=== PATIENT | male | born 1945 | race Caucasian/White ===

== ENCOUNTER 2017-05-10 04:03 | Emergency (ER) | payer OTHER ==
[~2017-05-10] VITALS: Ht 172.7 cm; Wt 78.3 kg
[~2017-05-10 04:03] MED LIST: ALBU0.08 INH; CIPR-255 PO; IPRA1AER2 INH; LEVAAER2 INH; LORA-741 PO; OXYC15TA89 PO; PRLSR20 PO; SERT-234 PO
[2017-05-10 04:08] VITALS: TEMP 36.6; Ht 172.7 cm; Wt 78.3 kg
--- NOTE | 2017-05-10 04:32 | EMERGENCY ROOM VISIT NOTE ---
History Report prepared by Minda: Nataly Mckeon Under the Supervision of: Dr. Karin Matthew M.D. First contact with patient: 04:13 Chief Complaint: UNABLE TO VOID Stated Complaint: UNABLE TO VOID History of Present Illness The patient is a 72 year old male who presents to the Emergency Room with complaints of difficulty urinating starting yesterday. He has been having a small amount of urinary output. The patient had scar tissue cut out from bladder on May 01. The patient's catheter was taken out 2 days ago. He is scheduled to have a bladder reconstruction in June. He also has a history of bowel reconstruction surgery. He had a small bowel movement about an hour and a half ago. He has a history of UTI. He is unsure about any fevers. The patient reports chronic back pain and denies any changes. Source of History: patient Onset: yesterday Position: other (global) Symptom Intensity: 04/27 Quality: other (difficulty urinating) Associated Symptoms: + back pain (chronic) Review of Systems See HPI for pertinent positives & negatives. A total of 10 systems reviewed and were otherwise negative. Past Medical & Surgical Medical Problems: (1) COPD (chronic obstructive pulmonary disease) (2) GERD (gastroesophageal reflux disease) (3) Hernia (4) Hyperlipidemia (5) Hypertension (6) Urethral stricture Family History Patient reports no known family medical history. Social History Smoking Status: Never Smoker Alcohol Use: none Drug Use: none Marital Status: Housing Status: lives with family Occupation Status: unemployed Current/Historical Medications Scheduled Fluticasone Propionate (Fluticasone Propionate), 2 SPRY NA BID Omeprazole (Prilosec), 20 MG PO QAM Sertraline (Zoloft), 100 MG PO DAILY Simvastatin (Simvastatin), 20 MG PO DAILY Scheduled PRN Albuterol Hfa (Ventolin Hfa), 2 PUFFS PO Q4 PRN for COUGH,SOB Albuterol Sulf (Proventil 0.083% 2.5MG/3ML), 2.5 MG INH QID PRN for Wheezing Ipratropium-Albuterol (Combivent Respimat), 1 PUFFS INH QID PRN for Wheezing Oxycodone Hcl (Oxycontin), 15 MG PO Q6 PRN for Pain Allergies Coded Allergies: Doxycycline (Verified Allergy, Unknown, GI UPSET, 05/10/17) Sulfamethoxazole w/Trimethoprim (Verified Allergy, Unknown, RASH, 05/10/17) Physical Exam Vital Signs Date Time Temp Pulse Resp B/P (MAP) Pulse Ox O2 Delivery O2 Flow Rate FiO2 05/10/17 07:11 83 18 182/78 97 05/10/17 06:30 80 18 149/86 97 05/10/17 04:08 36.6 86 18 176/77 96 Room Air Physical Exam Vital signs reviewed. General: Elderly, well-appearing, in no significant distress. HEENT: No scleral icterus, PERRLA, neck supple. Atraumatic. Cardiovascular: Regular rate and rhythm, no extra sounds. Pulmonary: Clear to auscultation bilaterally, normal work of breathing. Abdomen: Soft, nontender, nondistended, positive bowel sounds. Linear suprapubic scar to the abdomen. Musculoskeletal: Atraumatic, no peripheral edema. Neurologic: Patient awake alert and oriented x 3, full strength in all 4 extremities. Cranial nerves 2 through 12 grossly intact. Skin: Warm, dry, no rash Medical Decision & Procedures Laboratory Results 05/10/17 04:45 Red Blood Count 4.69, Mean Corpuscular Volume 93.2, Mean Corpuscular Hemoglobin 32.0, Mean Corpuscular Hemoglobin Concent 34.3, Mean Platelet Volume 10.6, Neutrophils (%) (Auto) 56.1, Lymphocytes (%) (Auto) 23.1, Monocytes (%) (Auto) 12.8, Eosinophils (%) (Auto) 7.3, Basophils (%) (Auto) 0.5, Neutrophils # (Auto ) 3.08, Lymphocytes # (Auto) 1.27, Monocytes # (Auto) 0.70, Eosinophils # (Auto ) 0.40, Basophils # (Auto) 0.03 05/10/17 04:45 Test 05/10/17 04:45 05/10/17 06:35 White Blood Count 5.49 K/uL (4.8-10.8) Red Blood Count 4.69 M/uL (4.7-6.1) Hemoglobin 15.0 g/dL (14.0-18.0) Hematocrit 43.7 % (42-52) Mean Corpuscular Volume 93.2 fL (80-100) Mean Corpuscular Hemoglobin 32.0 pg (25-34) Mean Corpuscular Hemoglobin Concent 34.3 g/dl (32-36) Platelet Count 236 K/uL (130-400) Mean Platelet Volume 10.6 fL (7.4-10.4) Neutrophils (%) (Auto) 56.1 % Lymphocytes (%) (Auto) 23.1 % Monocytes (%) (Auto) 12.8 % Eosinophils (%) (Auto) 7.3 % Basophils (%) (Auto) 0.5 % Neutrophils # (Auto) 3.08 K/uL (1.4-6.5) Lymphocytes # (Auto) 1.27 K/uL (1.2-3.4) Monocytes # (Auto) 0.70 K/uL (0.11-0.59) Eosinophils # (Auto) 0.40 K/uL (0-0.5) Basophils # (Auto) 0.03 K/uL (0-0.2) RDW Standard Deviation 40.4 fL (36.4-46.3) RDW Coefficient of Variation 12.0 % (11.5-14.5) Immature Granulocyte % (Auto) 0.2 % Immature Granulocyte # (Auto) 0.01 K/uL (0.00-0.02) Anion Gap 5.0 mmol/L (3-11) Est Creatinine Clear Calc Drug Dose 67.3 ml/min Estimated GFR () 91.2 Estimated GFR (Non- 78.7 BUN/Creatinine Ratio 9.4 (10-20) Calcium Level 9.2 mg/dl (8.5-10.1) Total Bilirubin 0.3 mg/dl (0.2-1) Direct Bilirubin 0.1 mg/dl (0-0.2) Aspartate Amino Transf (AST/SGOT) 12 U/L (15-37) Alanine Aminotransferase (ALT/SGPT) 17 U/L (12-78) Alkaline Phosphatase 78 U/L (45-117) Total Protein 6.2 gm/dl (6.4-8.2) Albumin 3.3 gm/dl (3.4-5.0) Urine Color YELLOW Urine Appearance CLEAR (CLEAR) Urine pH 6.5 (4.5-7.5) Urine Specific [place] 1.019 (1.000-1.030) Urine Protein TRACE (NEG) Urine Glucose (UA) NEG (NEG) Urine Ketones NEG (NEG) Urine Occult Blood 1+ (NEG) Urine Nitrite NEG (NEG) Urine Bilirubin NEG (NEG) Urine Urobilinogen NEG (NEG) Urine Leukocyte Esterase LARGE (NEG) Urine WBC (Auto) >30 /hpf (0-5) Urine RBC (Auto) 5-10 /hpf (0-4) Urine Hyaline Casts (Auto) 10-30 /lpf (0-5) Urine Epithelial Cells (Auto) 0-5 /lpf (0-5) Urine Bacteria (Auto) 2+ (NEG) Laboratory results per my review. Medications Administered Medications (Trade) Dose Ordered Sig/Madisyn Route Start Time Stop Time Status Last Admin Dose Admin Lidocaine HCl (Xylocaine Jelly 2%) 30 ml STK-MED ONCE EXT 05/10/17 06:03 05/10/17 06:04 DC 05/10/17 06:03 30 ML Ciprofloxacin (Cipro Tab) 500 mg NOW STAT PO 05/10/17 06:46 05/10/17 06:48 DC 05/10/17 07:00 500 MG ED Course 0413: Past medical records reviewed. The patient was evaluated in room A03. A complete history and physical examination was performed. 0420: The patient 93 cc of urine on bladder scan. 0643: I discussed the patient's case with Dr. Jacob, urologist with [facility]. 0646: Cipro Tab 500 mg PO 0655: Upon reevaluation, the patient appeared to have improvement of his symptoms. I discussed findings with him. He verbalized agreement of the treatment plan. He was discharged home. Medical Decision Medication Reconciliation: I attest that I have personally reviewed the patient' s current medication list. Blood Pressure Screening: Patient was found to have a slightly elevated blood pressure due to circumstances. I do not believe that the patient requires hypertension monitoring. Differential diagnosis includes but is not limited to urinary tract infection, bladder spasm, urethral scar tissue, kidney stone. This patient was evaluated and appeared to be in no significant distress. IV access was obtained and laboratory work was drawn. Laboratory work reveals no significant abnormalities. The patient does appear to have a UTI. Attempts were made to pass a Lorenzo catheter and were largely unsuccessful. After the last attempts, the patient was able to urinate on his own. Case was discussed with Dr. Jacob of urology was agreed to evaluate the patient at 8 AM in her office. Patient was given Cipro 500 mg orally per her request. Patient was informed of the plan and has agreed to go directly to her office for evaluation. He will return to the ER for worsening of symptoms or any medical concerns. Consults Time Called: [phone] Consulting Physician: Dr. Jacob, urologist with [facility] Returned Call: [phone] I discussed the patient's case with Dr. Jacob, urologist with [facility]. Impression Primary Impression: Urethral stricture Scribe Attestation The scribe's documentation has been prepared under my direction and personally reviewed by me in its entirety. I confirm that the note above accurately reflects all work, treatment, procedures, and medical decision making performed by me. Departure Information Dispostion Home / Self-Care Referrals Azucena Arreola M.D. (PCP) Linnette Jacob MD Forms HOME CARE DOCUMENTATION FORM, IMPORTANT VISIT INFORMATION, WORK / SCHOOL INSTRUCTIONS Patient Instructions My [facility] Additional Instructions Diagnosis: Urethral stricture, dysuria Please go directly to Dr. Fatima's office at 8 AM. Return to the emergency department for worsening of symptoms or any medical concerns.
[2017-05-10 04:58] LABS: BASO % 0.5 %; BASO ABS # 0.03 K/uL (0-0.2); COMPLETE YES; EOS % 7.3 %; HEMATOCRIT 43.7 % (42-52); IG% 0.2 %; LYMPH % 23.1 %; LYMPH ABS # 1.27 K/uL (1.2-3.4); MEAN CELL VOLUME 93.2 fL (80-100); MEAN CORPUSCULAR HGB CONC 34.3 g/dl (32-36); MEAN PLATELET VOLUME 10.6 fL (7.4-10.4); MONO % 12.8 %; NEUT % 56.1 %; PLATELET COUNT 236 K/uL (130-400); RED BLOOD COUNT 4.69 M/uL (4.7-6.1); WHITE BLOOD COUNT 5.49 K/uL (4.8-10.8)
[2017-05-10 05:19] LABS: BUN/CREATININE RATIO 9.4 (10-20); CREATININE 0.96 mg/dl (0.60-1.40); POTASSIUM 3.8 mmol/L (3.5-5.1)
[2017-05-10 05:24] LABS: CALCIUM 9.2 mg/dl (8.5-10.1)
[2017-05-10] MEDS ORDERED: LIDOCAINE HCL 2% JELLY 30 ML TUBE EXT ONE (06:03)
[2017-05-10] MEDS ORDERED: ALBINS/ INH (06:38)
[2017-05-10] MEDS ORDERED: VNTHFA/IN PO (06:39)
[2017-05-10] MEDS ORDERED: FLNIN/ (06:39)
[2017-05-10] MEDS ORDERED: SIMV-151 PO (06:39)
[2017-05-10] MEDS ORDERED: CIPROFLOXACIN 500 MG TAB PO STA (06:46)
[2017-05-10 07:11] VITALS: BP 182/78; PULSE 83; O2SAT 97
[2017-05-10 07:18] LABS: MANUAL MICROSCOPIC REQUIRED? NO; REVIEW REQ? NO; URINE APPEARANCE CLEAR (CLEAR); URINE BILIRUBIN NEG (NEG); URINE COLOR YELLOW; URINE EPITHELIAL CELL AUTO 0-5 /lpf (0-5); URINE NITRITE NEG (NEG); URINE PH 6.5 (4.5-7.5); URINE SPECIFIC GRAVITY 1.019 (1.000-1.030); UROBILINOGEN NEG (NEG); ZZUR CULT IF INDIC CLEAN CATCH YES
--- NOTE | 2017-05-13 12:11 | Pharmacy Progress Note ---
ED Pharmacist Culture FollowUp Date of Service: May 13, 2017. Patient seen in ER w/ c/o being unable to void. He recently had scar tissue removed from bladder on 05-01. He does have h/o UTI. UA performed: + LE (large), > 30 WBC, +2 bacteria, 0-5 epis He was dx with urethral stricture Dr Jacob from urology requested 500mg Cipro PO x 1 in ED (given) and patient was to f/u with urology on 05/10. Urine cx performed that day is growing >100,000 CFU/mL enterobacter agglomerans. He was not sent home w/ Rx for abx. I contacted Dr Fatima's office and explained that urine cx is positive. Office requested I fax results over ([phone]), which I did do, so that urology can f/u with patient. No further action required from ED standpoint.
== END 2017-05-10 07:12 | disposition home or self-care (01) ==
LOC: C.EDB 04:04 → C.EDA 07:12
DX: N35.9 Urethral stricture, unspecified (principal); M54.9 Dorsalgia, unspecified; G89.29 Other chronic pain; Z87.440 Personal history of urinary (tract) infections; J44.9 Chronic obstructive pulmonary disease, unspecified; K21.9 Gastro-esophageal reflux disease without esophagitis; E78.5 Hyperlipidemia, unspecified; I10 Essential (primary) hypertension; Z79.899 Other long term (current) drug therapy

== ENCOUNTER → 2017-11-07 | Outpatient (CLI) | payer OTHER ==
[~2017-11-07] MED LIST changes: +ALBINS/ INH; -ALBU0.08 INH; -CIPR-255 PO; +FLNIN/; -LEVAAER2 INH; -LORA-741 PO; +SIMV-151 PO; +VNTHFA/IN PO
== END | disposition home or self-care (01) ==
LOC: C.PATHSPEC 17:22
PROVIDERS: ATTEND Surgery
DX: L72.3 Sebaceous cyst (principal)

== ENCOUNTER → 2017-11-07 | Outpatient (CLI) | payer OTHER | END | disposition home or self-care (01) | LOC: C.LABSPEC 16:52 | PROVIDERS: ATTEND Surgery | DX: L72.3 Sebaceous cyst (principal) ==

== ENCOUNTER → 2018-03-05 | Outpatient (CLI) | payer OTHER | END | disposition home or self-care (01) | LOC: C.LABSPEC 10:45 | PROVIDERS: ATTEND Family Medicine | DX: R39.9 Unspecified symptoms and signs involving the genitourinary system (principal) ==

== ENCOUNTER 2022-11-05 13:52 | Inpatient (IN) ==
[2022-11-05] MEDS ORDERED: ACETAMINOPHEN 500 MG TAB PO STA (13:55)
[2022-11-05] MEDS ORDERED: SODIUM CHLORIDE 0.9% 1000ML 1,000 ML IV SCH (14:00)
--- NOTE | 2022-11-05 14:19 | XRay Report ---
SINGLE VIEW CHEST CLINICAL HISTORY: Dyspnea FINDINGS: An AP, portable, upright chest radiograph is compared to study dated 10/14/2016. The heart is enlarged noting mild atherosclerotic calcification of the thoracic aorta. The pulmonary vasculatur e is noncongested. Emphysema and chronic interstitial thickening similar to previous. Scarring/atelec tasis is seen at the lung bases. No airspace consolidation or large pleural effusion is identified. N o pneumothorax is seen. The skeletal structures are osteopenic. There are healed left-sided rib fract ures. IMPRESSION: Cardiomegaly and emphysema with no acute cardiopulmonary abnormality identified ACT 112: Negative or not required by law. Electronically signed by: Nikos Morataya M.D. 11/05/2022 2:18 PM
[2022-11-05] MEDS ORDERED: ALBUT/IPRATROP 3MG/0.5MG NEB 3 ML VIAL NEB STA (14:22)
[2022-11-05] MEDS ORDERED: methylPREDNISolone 125 MG/2 ML VIAL IV STA (14:22)
--- NOTE | 2022-11-05 14:22 | Emergency Department Note ---
Impression & Plan Flu-like symptoms, Hypoxia ED Provider Note INFORMANT: Patient and EMS ED PROVIDER(S): Jason Kang MD CHIEF COMPLAINT: Flulike symptoms PLAN: Disposition: Admitted Condition: Good Outpatient prescription management: none Referral: None MEDICAL DECISION MAKING: Patient presented because of flulike symptoms. He was febrile but that was treated with Tylenol at the urgent care center. He did respond well to nasal cannula oxygen. His CBC and chemistry panel did not reveal any gross abnormalities. His ECG and monitoring here revealed a sinus rhythm with PACs. EMS thought that they noted the patient to have an irregular heartbeat and were concerned about A. fib. No clear evidence of that here. The patient had chronic appearing changes on his chest x-ray without evidence of clear pneumonia. Patient had received a DuoNeb and Solu-Medrol. On reassessment he was feeling somewhat better with this. He still generally weak. His bio fire testing did reveal the presence of influenza A. Tamiflu was ordered. Given the hypoxia and generalized weakness I discussed further management in the hospital with the patient. He was in agreement. Consultation was made with [facility]. Patient was evaluated in the ER for further management. Triage Nursing notes reviewed and agree them. Vital Signs: reviewed and remarkable for hypoxia and fever Differential diagnosis: COVID-19, influenza, RSV, reactive airway disease, pneumonia, pneumothorax, COPD, CHF, infections, cardiac ischemia, pulmonary embolism, musculoskeletal, gastrointestinal, as well as other pathologies. Diagnostics interpreted by me: ECG: Twelve-lead ECG reveals a sinus rhythm with PACs at a 93 bpm. Left axis deviation. Septal Q wave. No ST elevation or depression. Cardiac Monitoring: Cardiac monitoring ordered by me: The patient was placed on continuous cardiac monitoring and observed. It revealed a normal sinus rhythm at 88 beats per minute without evidence of dysrhythmia. Imaging studies: Chest x-ray as noted below HPI: The patient is a 77year old male who presents to the Emergency Room with complaints of flulike symptoms. He noted some difficulty breathing over about the last 6 days but then over the last 3 days has had increased cough, weakness, fevers, and shortness of breath. Patient does have a history of COPD. He did go to the urgent care center in [place] and was noted to have a low O2 saturation. Patient states he has had occasional use of oxygen in the past but does not use it on a regular basis. His O2 saturation for EMS was 88%. Patient appeared to be in a new onset A. fib per EMS. No significant tachycardia. He did have a temperature of 102 at the urgent care and was given 650 mg of Tylenol. Patient does note that family members are sick as well with flulike symptoms. He notes the last few days have been extremely difficult getting arou nd due to the weakness and the symptoms. Pt denies LOC, headache,diaphoresis, visual changes, neck pain, chest pain,nausea, vomiting, abdominal pain, back pain, melena, hematochezia, urinary symptoms, numbness, lymphadenopathy, rash, or other complaints. ROS: See above HPI for pertinent positives & negatives. A total of 10 systems reviewed and were otherwise negative. PAST MEDICAL HISTORY:See Below , COPD PAST SURGICAL HISTORY:See Below, FAMILY HISTORY:See Below SOCIAL HISTORY:See Below, former smoker HOME MEDICATIONS:See Below ALLERGIES:See Below VITALS:See Below PHYSICAL EXAMINATION: GENERAL: Awake, alert, mildly ill appearing, no distress HEAD: Normocephalic, atraumatic. No edema. EYES: Normal conjunctiva. Sclera non-icteric. NOSE: Mild congestion. OROPHARYNX: Lips, tongue, and mucosa unremarkable. No erythema or exudate. NECK: Inspection normal. Non-tender. Supple. No nuchal rigidity. FROM. No adenopathy. Negative jolt accentuation test. RESPIRATORY: Scattered wheezes and left-sided rhonchi. Normal respiratory effort. CARDIAC: Borderline tachycardic rate. Normal rhythm. No murmurs. No rubs. GI: Soft, non distended. No tenderness to palpation. NEURO: Normal sensorium. Normal speech. SKIN: No rash or jaundice noted. Jason Kang MD Past Med/Surg History Medical History (Updated 11/05/22 @ 14:22 by Jason Kang MD) COPD (chronic obstructive pulmonary disease) GERD (gastroesophageal reflux disease) Hernia Hyperlipidemia Hypertension Kidney cysts Surgical History (Updated 11/16/20 @ 13:02 by Isamar Talley RN) S/P urological surgery Family History Denies family history of Colon cancer Ovarian cancer Prostate cancer Myocardial infarction Breast cancer Social History Smoking Status: Unknown if ever smoked Age Quit Using Tobacco: 62; Second Hand Exposure: No; Hx Alcohol Use: No Hx Substance Use: No Visual Impairment: No Limitations Hearing Ability: Hard of Hearing marital status: Current Living Situation: Spouse current occupational status: retired Feels Safe at Home: Yes Dental Care, Regularly: No Physical Activity Frequency: Does not Exercise Allergies Allergies Allergy/AdvReac Type Severity Reaction Status Date / Time Bactrim Allergy Unknown RASH Verified 05/10/17 06:37 doxycycline Allergy Unknown GI UPSET Verified 08/20/19 13:33 sulfamethoxazole Allergy Unknown RASH Verified 08/20/19 13:33 trimethoprim Allergy Unknown RASH Verified 08/20/19 13:33 Home Meds Previous Rx's Medication Instructions Recorded oxycodone 15 mg tablet 15 mg PO DAILY PRN pain #30 tabs 08/20/19 fluticasone propionate 50 2 sprays intranasal DAILY #16 grams 05/13/20 mcg/actuation nasal spray,suspension (Allergy Relief (fluticasone)) albuterol sulfate 2.5 mg/3 mL 2.5 mg (3 mL) inhalation Q6H PRN 06/08/20 (0.083 %) solution for nebulization shortness of breath or wheezing #360 mL Results & Data (ED) Vital Signs Vital Signs - 24 hr 11/05/22 14:02 11/05/22 14:50 11/05/22 14:25 Temperature 37.7 C H Temperature Source Oral Pulse Rate 89 97 H Pulse Rhythm Regular Pulse Rhythm [Right Brachial] Pulse Strength [Right Brachial] Respiratory Rate 20 26 H Respiratory Effort / Characteristics Non-Labored Respiratory Depth Normal Respiratory Pattern Regular Blood Pressure 116/66 Blood Pressure [Right Arm] Blood Pressure Mean 82 Blood Pressure Mean [Right Arm] Blood Pressure Position [Right Arm] Pulse Oximetry 96 2 L Oxygen Delivery Method Nasal Cannula Nasal Cannula Oxygen Flow Rate 2 Sepsis Recent Fever Within 48 Hours Yes Sepsis New/Unexplained Change in Mental Status No Sepsis Action Taken by Nursing No Action Required 11/05/22 14:30 11/05/22 15:00 11/05/22 15:00 Temperature Temperature Source Pulse Rate 97 H 88 Pulse Rhythm Pulse Rhythm [Right Brachial] Pulse Strength [Right Brachial] Respiratory Rate 21 20 Respiratory Effort / Characteristics Respiratory Depth Respiratory Pattern Blood Pressure 143/75 H Blood Pressure [Right Arm] Blood Pressure Mean 97 Blood Pressure Mean [Right Arm] Blood Pressure Position [Right Arm] Pulse Oximetry Oxygen Delivery Method Oxygen Flow Rate Sepsis Recent Fever Within 48 Hours Sepsis New/Unexplained Change in Mental Status Sepsis Action Taken by Nursing 11/05/22 15:30 Temperature Temperature Source Pulse Rate Pulse Rhythm Pulse Rhythm [Right Brachial] Regular Pulse Strength [Right Brachial] Normal Respiratory Rate 18 Respiratory Effort / Characteristics Non-Labored Spontaneous Respiratory Depth Normal Respiratory Pattern Regular Blood Pressure Blood Pressure [Right Arm] 130/73 Blood Pressure Mean Blood Pressure Mean [Right Arm] 92 Blood Pressure Position [Right Arm] Lying Pulse Oximetry 93 Oxygen Delivery Method Nasal Cannula Oxygen Flow Rate 2 Sepsis Recent Fever Within 48 Hours Sepsis New/Unexplained Change in Mental Status Sepsis Action Taken by Nursing Laboratory Data Result diagrams: 11/05/22 14:13 11/05/22 14:13 Lab Results 11/05/22 11/05/22 11/05/22 Range/Units 14:13 14:13 14:13 WBC 7.02 (4.8-10.8) K/ul RBC 4.85 (4.63-6.08) M/uL Hgb 15.2 (14.0-18.0) g/dl Hct 45.0 (40.1-51.0) % MCV 92.8 (80.0-100.0) fL MCH 31.3 (25.0-34.0) pg MCHC 33.8 (32.0-36.0) g/dL RDW Std Deviation 39.9 (36.4-46.3) fL RDW Coeff of [place]ner 11.8 (11.5-14.5) % Plt Count 190 (130-400) K/uL MPV 11.6 (9.4-12.4) fL Immature Gran % (Auto) 0.7 % Neut % (Auto) 78.3 % Lymph % (Auto) 7.5 % [place] % (Auto) 13.2 % Eos % (Auto) 0.0 % Baso % (Auto) 0.3 % Neut # (Auto) 5.49 (1.4-6.5) K/uL Lymph # (Auto) 0.53 L (1.2-3.4) K/uL [place] # (Auto) 0.93 H (0.24-0.82) K/uL Eos # (Auto) 0.00 (0-0.50) K/uL Baso # (Auto) 0.02 (0-0.2) K/uL Immature Gran # (Auto) 0.05 H (0.00-0.02) K/uL Sodium 135 L (136-145) mmol/L Potassium 3.9 (3.5-5.1) mmol/L Chloride 101 (98-107) mmol/L Carbon Dioxide 25 (21-32) mmol/L Anion Gap 9 (3-11) BUN 13 (6-23) mg/dl Creatinine 0.90 (0.6-1.4) mg/dl Est Cr Clr Drug Dosing 64.3 ml/min Est GFR ( Amer) 95.1 ml/min Est GFR (Non-Af Amer) 82.1 ml/min BUN/Creatinine Ratio 14.4 (10-20) Glucose 99 (70-99(Fasting)) mg/dl Calcium 8.4 L (8.5-10.1) mg/dl Total Bilirubin 0.5 (0.2-1.0) mg/dl AST 18 (13-39) U/L ALT 11 (7-52) U/L Alkaline Phosphatase 71 (34-104) U/L Troponin I High Sens 14.9 (0-20) pg/ml B-Natriuretic Peptide 55 (0-100) pg/ml Total Protein 7.0 (6.0-8.3) gm/dl Albumin 3.9 (3.4-5.0) gm/dl Globulin 3.1 (2.5-4.0) gm/dl Albumin/Globulin Ratio 1.3 (0.9-2) Urine Color Urine Appearance (Clear) Urine pH (4.5-7.5) Ur Specific [place] (1.000-1.030) Urine Protein (Negative) Urine Glucose (UA) (Negative) Urine Ketones (Negative) Urine Blood (Negative) Urine Nitrite (Negative) Urine Bilirubin (Negative) Urine Urobilinogen (Negative) Ur Leukocyte Esterase (Negative) Urine WBC (Auto) (0-5) /hpf Urine RBC (Auto) (0-4) /hpf U Hyaline Cast (Auto) (0-5) /lpf U Epithel Cells (Auto) (0-5) /lpf Urine Bacteria (Auto) (Negative) Adenovirus (PCR) (NotDetected) B. pertussis DNA (PCR) (NotDetected) B.parapertussis DNA PCR (NotDetected) C. pneumoniae DNA (PCR) (NotDetected) Coronavirus OC43 (PCR) (NotDetected) Coronavirus HKU1 (PCR) (NotDetected) Coronavirus 229E (PCR) (NotDetected) SARS-CoV-2 (PCR) (NotDetected) Coronavirus NL63 (PCR) (NotDetected) Human Metapneumovir PCR (NotDetected) Influenza A (H3) PCR (NotDetected) Influenza Type B (PCR) (NotDetected) M. pneumoniae (PCR) (NotDetected) Parainfluenza 1 (PCR) (NotDetected) Parainfluenza 2 (PCR) (NotDetected) Parainfluenza 3 (PCR) (NotDetected) Parainfluenza 4 (PCR) (NotDetected) RSV (PCR) (NotDetected) Entero/Rhino (PCR) (NotDetected) 11/05/22 11/05/22 Range/Units 14:13 15:50 WBC (4.8-10.8) K/ul RBC (4.63-6.08) M/uL Hgb (14.0-18.0) g/dl Hct (40.1-51.0) % MCV (80.0-100.0) fL MCH (25.0-34.0) pg MCHC (32.0-36.0) g/dL RDW Std Deviation (36.4-46.3) fL RDW Coeff of Conner (11.5-14.5) % Plt Count (130-400) K/uL MPV (9.4-12.4) fL Immature Gran % (Auto) % Neut % (Auto) % Lymph % (Auto) % [place] % (Auto) % Eos % (Auto) % Baso % (Auto) % Neut # (Auto) (1.4-6.5) K/uL Lymph # (Auto) (1.2-3.4) K/uL [place] # (Auto) (0.24-0.82) K/uL Eos # (Auto) (0-0.50) K/uL Baso # (Auto) (0-0.2) K/uL Immature Gran # (Auto) (0.00-0.02) K/uL Sodium (136-145) mmol/L Potassium (3.5-5.1) mmol/L Chloride (98-107) mmol/L Carbon Dioxide (21-32) mmol/L Anion Gap (3-11) BUN (6-23) mg/dl Creatinine (0.6-1.4) mg/dl Est Cr Clr Drug Dosing ml/min Est GFR ( Amer) ml/min Est GFR (Non-Af Amer) ml/min BUN/Creatinine Ratio (10-20) Glucose (70-99(Fasting)) mg/dl Calcium (8.5-10.1) mg/dl Total Bilirubin (0.2-1.0) mg/dl AST (13-39) U/L ALT (7-52) U/L Alkaline Phosphatase (34-104) U/L Troponin I High Sens (0-20) pg/ml B-Natriuretic Peptide (0-100) pg/ml Total Protein (6.0-8.3) gm/dl Albumin (3.4-5.0) gm/dl Globulin (2.5-4.0) gm/dl Albumin/Globulin Ratio (0.9-2) Urine Color Yellow Urine Appearance Clear (Clear) Urine pH 5.5 (4.5-7.5) Ur Specific [place] 1.017 (1.000-1.030) Urine Protein Trace H (Negative) Urine Glucose (UA) Negative (Negative) Urine Ketones 1+ H (Negative) Urine Blood Negative (Negative) Urine Nitrite Negative (Negative) Urine Bilirubin Negative (Negative) Urine Urobilinogen Negative (Negative) Ur Leukocyte Esterase Negative (Negative) Urine WBC (Auto) 1-5 (0-5) /hpf Urine RBC (Auto) 0-4 (0-4) /hpf U Hyaline Cast (Auto) 1-5 (0-5) /lpf U Epithel Cells (Auto) 10-20 H (0-5) /lpf Urine Bacteria (Auto) Negative (Negative) Adenovirus (PCR) Not Detected (NotDetected) B. pertussis DNA (PCR) Not Detected (NotDetected) B.parapertussis DNA PCR Not Detected (NotDetected) C. pneumoniae DNA (PCR) Not Detected (NotDetected) Coronavirus OC43 (PCR) Not Detected (NotDetected) Coronavirus HKU1 (PCR) Not Detected (NotDetected) Coronavirus 229E (PCR) Not Detected (NotDetected) SARS-CoV-2 (PCR) Not Detected (NotDetected) Coronavirus NL63 (PCR) Not Detected (NotDetected) Human Metapneumovir PCR Not Detected (NotDetected) Influenza A (H3) PCR DETECTED A* (NotDetected) Influenza Type B (PCR) Not Detected (NotDetected) M. pneumoniae (PCR) Not Detected (NotDetected) Parainfluenza 1 (PCR) Not Detected (NotDetected) Parainfluenza 2 (PCR) Not Detected (NotDetected) Parainfluenza 3 (PCR) Not Detected (NotDetected) Parainfluenza 4 (PCR) Not Detected (NotDetected) RSV (PCR) Not Detected (NotDetected) Entero/Rhino (PCR) Not Detected (NotDetected) Administered Medications Sodium Chloride (Nss 1000ml) 1,000 mls @ 125 mls/hr IV .Q8H [facility] Stop: 12/05/22 13:59 Last Admin: 11/05/22 14:35 Dose: 125 mls/hr Documented By: MAMIE Discontinued Medications Acetaminophen (Acetaminophen 500 Mg Tab) 1,000 mg PO NOW STA Stop: 11/05/22 13:56 Last Admin: 11/05/22 14:47 Dose: Not Given Documented By: BELÉN Albuterol (Albut/Ipratrop 3mg/0.5mg Neb 3 Ml Vial) 3 ml NEB NOW STA; Protocol Stop: 11/05/22 14:23 Last Admin: 11/05/22 14:36 Dose: 3 ml Documented By: MAMIE Methylprednisolone (Methylprednisolone 125 Mg/2 Ml Vial) 125 mg IV NOW STA Stop: 11/05/22 14:23 Last Admin: 11/05/22 14:35 Dose: 125 mg Documented By: MAMIE Imaging Data Radiologist's Impression: Chest X-Ray 11/05/22 13:55 SINGLE VIEW CHEST CLINICAL HISTORY: Dyspnea FINDINGS: An AP, portable, upright chest radiograph is compared to study dated 10/14/2016. The heart is enlarged noting mild atherosclerotic calcification of the thoracic aorta. The pulmonary vasculature is noncongested. Emphysema and chronic interstitial thickening similar to previous. Scarring/atelectasis is seen at the lung bases. No airspace consolidation or large pleural effusion is identified. No pneumothorax is seen. The skeletal structures are osteopenic. There are healed left-sided rib fractures. IMPRESSION: Cardiomegaly and emphysema with no acute cardiopulmonary abnormality identified ACT 112: Negative or not required by law. Electronically signed by: Nikos Morataya M.D. 11/05/2022 2:18 PM Discharge Plan Visit Data Chief Complaint: Flu Like Symptoms Stated Complaint: FLU SX ED Provider: Jason Kang Discharge Problem: Flu-like symptoms, Hypoxia Forms Stand Alone Forms: [facility] Prescriptions Prescriptions: No Action fluticasone propionate [Allergy Relief (fluticasone)] 50 mcg/actuation spray,suspension 2 sprays INTNAS DAILY Qty: 16 5RF Rx Instructions: administer into each nostril albuterol sulfate 2.5 mg /3 mL (0.083 %) solution for nebulization 2.5 mg INH Q6H PRN (Reason: shortness of breath or wheezing) Qty: 360 1RF oxycodone 15 mg tablet 15 mg PO DAILY PRN (Reason: pain) Qty: 30 0RF Referrals Referrals: PCP,NO [Primary Care Provider] -
[2022-11-05 15:02] LABS: Basophils # (auto) 0.02 K/uL (0-0.2); Basophils % (auto) 0.3 %; Hemoglobin 15.2 g/dl (14.0-18.0); Immature Granulocytes # (auto) 0.05 K/uL (0.00-0.02); Immature Granulocytes % (auto) 0.7 %; Lymphocytes # (auto) 0.53 K/uL (1.2-3.4); Lymphocytes % (auto) 7.5 %; Mean Corpuscular Hemoglobin 31.3 pg (25.0-34.0); Mean Corpuscular Hgb Conc 33.8 g/dL (32.0-36.0); Mean Corpuscular Volume 92.8 fL (80.0-100.0); Mean Platelet Volume 11.6 fL (9.4-12.4); Monocytes # (auto) 0.93 K/uL (0.24-0.82); Monocytes % (auto) 13.2 %; Neutrophils # (auto) 5.49 K/uL (1.4-6.5); Neutrophils % (auto) 78.3 %; Platelet Count 190 K/uL (130-400); RDW Coefficient of Variation 11.8 % (11.5-14.5); RDW Standard Deviation 39.9 fL (36.4-46.3); Red Blood Count 4.85 M/uL (4.63-6.08); White Blood Count 7.02 K/ul (4.8-10.8)
[2022-11-05 15:29] LABS: Troponin I High Sensitivity 14.9 pg/ml (0-20)
[2022-11-05 15:31] LABS: Albumin Globulin Ratio 1.3 (0.9-2); Albumin Level 3.9 gm/dl (3.4-5.0); BUN Creatinine Ratio 14.4 (10-20); Bilirubin,Total 0.5 mg/dl (0.2-1.0); Calcium 8.4 mg/dl (8.5-10.1); Creatinine Clr Calc Pharmacy 64.3 ml/min; Est GFR (African American) 95.1 ml/min; Est GFR (Non-African American) 82.1 ml/min; Globulin 3.1 gm/dl (2.5-4.0); Potassium 3.9 mmol/L (3.5-5.1)
[2022-11-05 16:11] LABS: Appearance Urine Clear (Clear); Bacteria Urine Automated Negative (Negative); Bilirubin Urine Negative (Negative); Blood Urine Negative (Negative); Color Urine Yellow; Glucose Urine UA Negative (Negative); Ketones Urine 1+ (Negative); Leukocyte Esterase Urine Negative (Negative); Nitrite Urine Negative (Negative); Protein Urine Trace (Negative); RBC Urine Automated 0-4 /hpf (0-4); Specific Gravity Urine 1.017 (1.000-1.030); Urobilinogen Urine Negative (Negative); pH Urine 5.5 (4.5-7.5)
[2022-11-05 16:28] LABS: Adenovirus PCR Not Detected (NotDetected); Bordetella parapertussis PCR Not Detected (NotDetected); Bordetella pertussis PCR Not Detected (NotDetected); Chlamydia pneumoniae PCR Not Detected (NotDetected); Coronavirus 229E PCR Not Detected (NotDetected); Coronavirus CoV-2 (COVID19)PCR Not Detected (NotDetected); Coronavirus HKU1 PCR Not Detected (NotDetected); Coronavirus NL63 PCR Not Detected (NotDetected); Coronavirus OC43PCR Not Detected (NotDetected); Human Metapneumovirus PCR Not Detected (NotDetected); Influenza B PCR Not Detected (NotDetected); Mycoplasma pneumoniae PCR Not Detected (NotDetected); Parainfluenza Virus 1 PCR Not Detected (NotDetected); Parainfluenza Virus 2 PCR Not Detected (NotDetected); Parainfluenza Virus 3 PCR Not Detected (NotDetected); Parainfluenza Virus 4 PCR Not Detected (NotDetected); Respiratory Syncytial VirusPCR Not Detected (NotDetected); Rhinovirus/Enterovirus PCR Not Detected (NotDetected)
[2022-11-05 16:33] LABS: Influenza A (H3) PCR DETECTED (NotDetected)
[2022-11-05] MEDS ORDERED: OSELTAMIVIR PHOSPHATE 75 MG CAP PO STA (16:37)
--- NOTE | 2022-11-05 17:10 | Hospitalist Progress Note ---
Date of Service November 05, 2022 Assessment & Plan (1) Influenza A: (2) Hypoxia: (3) Hypertension: (4) COPD (chronic obstructive pulmonary disease): (5) Hyperlipidemia: (6) BPH (benign prostatic hyperplasia): (7) Chronic narcotic use: Results & Data Results & Data ([facility]) Vital Signs (Past 12 Hours) Vital Signs Temp Pulse Resp BP BP Pulse Ox O2 Del Method 11/05/22 15:30 18 130/73 93 Nasal Cannula 11/05/22 15:00 143/75 H 11/05/22 15:00 88 20 11/05/22 14:30 97 H 21 11/05/22 14:25 97 H 26 H 11/05/22 14:50 2 L Nasal Cannula 11/05/22 14:02 37.7 C H 89 20 116/66 96 Nasal Cannula O2 Flow Rate 11/05/22 15:30 2 11/05/22 15:00 11/05/22 15:00 11/05/22 14:30 11/05/22 14:25 11/05/22 14:50 11/05/22 14:02 2 Laboratory Results Short CBC 11/05/22 Range/Units 14:13 WBC 7.02 (4.8-10.8) K/ul Hgb 15.2 (14.0-18.0) g/dl Hct 45.0 (40.1-51.0) % Plt Count 190 (130-400) K/uL BMP 11/05/22 14:13 Sodium 135 L Potassium 3.9 Chloride 101 Carbon Dioxide 25 BUN 13 Creatinine 0.90 Glucose 99 Calcium 8.4 L Liver Function 11/05/22 Range/Units 14:13 Total Bilirubin 0.5 (0.2-1.0) mg/dl AST 18 (13-39) U/L ALT 11 (7-52) U/L Alkaline Phosphatase 71 (34-104) U/L Albumin 3.9 (3.4-5.0) gm/dl Urine 11/05/22 Range/Units 15:50 Urine Color Yellow Urine Appearance Clear (Clear) Urine pH 5.5 (4.5-7.5) Ur Specific [place] 1.017 (1.000-1.030) Urine Protein Trace H (Negative) Urine Glucose (UA) Negative (Negative) Diagnostic Findings Chest X-Ray 11/05/22 13:55 SINGLE VIEW CHEST CLINICAL HISTORY: Dyspnea FINDINGS: An AP, portable, upright chest radiograph is compared to study dated 10/14/2016. The heart is enlarged noting mild atherosclerotic calcification of the thoracic aorta. The pulmonary vasculature is noncongested. Emphysema and chronic interstitial thickening similar to previous. Scarring/atelectasis is seen at the lung bases. No airspace consolidation or large pleural effusion is identified. No pneumothorax is seen. The skeletal structures are osteopenic. There are healed left-sided rib fractures. IMPRESSION: Cardiomegaly and emphysema with no acute cardiopulmonary abnormality identified ACT 112: Negative or not required by law. Electronically signed by: Nikos Morataya M.D. 11/05/2022 2:18 PM
--- NOTE | 2022-11-05 17:52 | History & Physical Report ---
Date of Service November 05, 2022 Assessment & Plan (1) Influenza A: Plan: Tamiflu course prescribed, nebulized bronchodilators as needed, Robitussin-AC as needed (2) Hypoxia: Plan: Continue with oxygen supplementation as needed. Chest x-ray does not reveal evidence of pneumonia at this time. (3) Weakness: Plan: 2/2 flu, cont to monitor with treatment and rest. (4) COPD (chronic obstructive pulmonary disease): Plan: Chronic, stable. No active wheezing or evidence of exacerbation. Continue home inhalers. (5) Hyperlipidemia: Plan: Chronic, stable. Continue home atorvastatin. (6) BPH (benign prostatic hyperplasia): Plan: Chronic, stable. Continue home tamsulosin and finasteride. (7) Chronic narcotic use: Plan: Chronic, continue oxycodone as needed per home regimen Lovenox for DVT prophylaxis Full code Disposition-to home in next 1 to 2 days pending improvement in weakness and fatigue. Aaliyah Coles DO [facility] History of Present Illness Primary Care Provider: NO PCP 77 yo former smoker with COPD who presents with RON symptoms ongoing for 3 days including chest pain with deep breathing, cough, fevers, malaise, weakness. Nyquil/Dayquil not helping at home. Sleeping a lot and no energy. Reporst legs are weak although he is walking and requiring oxygen-borderline amount. No GI symptoms, able to tolerate PO. ROS otherwise negative. Allergies Allergy/AdvReac Type Severity Reaction Status Date / Time sulfamethoxazole Allergy Intermediate RASH Verified 11/05/22 17:41 trimethoprim Allergy Intermediate RASH Verified 11/05/22 17:41 doxycycline AdvReac Intermediate GI UPSET Verified 11/05/22 17:41 Home Medications Medication Instructions Recorded Confirmed Type oxycodone 15 mg tablet 15 mg PO DAILY PRN pain #30 tabs 08/20/19 08/20/19 Rx fluticasone propionate 50 2 sprays intranasal DAILY #16 grams 05/13/20 Rx mcg/actuation nasal spray,suspension (Allergy Relief (fluticasone)) albuterol sulfate 2.5 mg/3 mL 2.5 mg (3 mL) inhalation Q6H PRN 06/08/20 Rx (0.083 %) solution for nebulization shortness of breath or wheezing #360 mL atorvastatin 10 mg tablet 10 mg PO DAILY 11/05/22 11/05/22 History ergocalciferol (vitamin D2) 1,250 50,000 unit PO WK 11/05/22 11/05/22 History mcg (50,000 unit) capsule finasteride 5 mg tablet 5 mg PO QAM 11/05/22 11/05/22 History tamsulosin 0.4 mg capsule 0.4 mg PO DAILY 11/05/22 11/05/22 History Past Med/Surg History Medical History BPH (benign prostatic hyperplasia) Chronic narcotic use COPD (chronic obstructive pulmonary disease) Depression with anxiety GERD (gastroesophageal reflux disease) Hernia Hyperlipidemia Hypertension Kidney cysts LAFB (left anterior fascicular block) Primary localized osteoarthritis of left knee Urethral stricture Surgical History History of bladder surgery h/o trauma from a tractor S/P urological surgery Family History Denies family history of Colon cancer Ovarian cancer Prostate cancer Myocardial infarction Breast cancer Social History Smoking Status: Former smoker Age Quit Using Tobacco: 62; Second Hand Exposure: No; Do You Dip or Chew Tobacco: Yes (uses tobacco pouches); Hx Alcohol Use: No Hx Substance Use: No Visual Impairment: No Limitations Hearing Ability: Hard of Hearing marital status: Current Living Situation: Spouse Current Living Situation Comment: lives with a 4 yo and 16 yo current occupational status: retired Feels Safe at Home: Yes Dental Care, Regularly: No Physical Activity Frequency: Does not Exercise Review of Systems Review of Systems: All systems reviewed negative except as indicated above. Physical Exam Physical Exam: CONSTITUTIONAL: WNWD, vitals as above, generally NAD EYES: normal conjunctivae, no scleral icterus ENT: external ear and nose normal, MMM NECK: trachea midline RESPIRATORY: rales throughout all posterior lung carranza, no wheezes or rhonchi, normal respiratory effort CARDIOVASCULAR: regular rate and rhythm, S1 and 2 heard without murmurs, gallops or rubs, no JVD, no peripheral edema CHEST: inspection of chest was normal GASTROINTESTINAL: soft, nontender, ND no guarding MUSCULOSKELETAL: strength 5/5 throughout, head is normocephalic and atraumatic, ambulates to and from bathroom independently SKIN: warm and dry, no rashes NEUROLOGIC: CN 2-12 grossly intact, no sensory deficit, normal cognition, normal speech, no tremor PSYCHIATRIC: alert cooperative and oriented to person, place and time. Euthymic mood, makes good eye contact, language grossly intact, recent and remote memory grossly intact. Results & Data Results & Data ([facility]) Vital Signs (Past 12 Hours) Vital Signs Temp Pulse Pulse Resp BP BP Pulse Ox 11/05/22 17:13 87 19 132/75 94 11/05/22 15:30 18 130/73 93 11/05/22 15:00 143/75 H 11/05/22 15:00 88 20 11/05/22 14:30 97 H 21 11/05/22 14:25 97 H 26 H 11/05/22 14:50 2 L 11/05/22 14:02 37.7 C H 89 20 116/66 96 O2 Del Method O2 Flow Rate 11/05/22 17:13 Nasal Cannula 2 11/05/22 15:30 Nasal Cannula 2 11/05/22 15:00 11/05/22 15:00 11/05/22 14:30 11/05/22 14:25 11/05/22 14:50 Nasal Cannula 11/05/22 14:02 Nasal Cannula 2 Laboratory Results Short CBC 11/05/22 Range/Units 14:13 WBC 7.02 (4.8-10.8) K/ul Hgb 15.2 (14.0-18.0) g/dl Hct 45.0 (40.1-51.0) % Plt Count 190 (130-400) K/uL BMP 11/05/22 14:13 Sodium 135 L Potassium 3.9 Chloride 101 Carbon Dioxide 25 BUN 13 Creatinine 0.90 Glucose 99 Calcium 8.4 L Liver Function 11/05/22 Range/Units 14:13 Total Bilirubin 0.5 (0.2-1.0) mg/dl AST 18 (13-39) U/L ALT 11 (7-52) U/L Alkaline Phosphatase 71 (34-104) U/L Albumin 3.9 (3.4-5.0) gm/dl Urine 11/05/22 Range/Units 15:50 Urine Color Yellow Urine Appearance Clear (Clear) Urine pH 5.5 (4.5-7.5) Ur Specific [place] 1.017 (1.000-1.030) Urine Protein Trace H (Negative) Urine Glucose (UA) Negative (Negative) Diagnostic Findings Chest X-Ray 11/05/22 13:55 SINGLE VIEW CHEST CLINICAL HISTORY: Dyspnea FINDINGS: An AP, portable, upright chest radiograph is compared to study dated 10/14/2016. The heart is enlarged noting mild atherosclerotic calcification of the thoracic aorta. The pulmonary vasculature is noncongested. Emphysema and chronic interstitial thickening similar to previous. Scarring/atelectasis is seen at the lung bases. No airspace consolidation or large pleural effusion is identified. No pneumothorax is seen. The skeletal structures are osteopenic. There are healed left-sided rib fractures. IMPRESSION: Cardiomegaly and emphysema with no acute cardiopulmonary abnormality identified ACT 112: Negative or not required by law. Electronically signed by: Nikos Morataya M.D. 11/05/2022 2:18 PM Code Status & VTE Plan VTE Prophylaxis Plan VTE Prophylaxis will be ordered: Yes
[2022-11-05] MEDS ORDERED: oxyCODONE HCL IR 5 MG TAB (IMMEDIATE RELEASE) PO PRN (18:05)
[2022-11-05] MEDS ORDERED: POLYETHYLENE (MIRALAX) 17 GM PACK PO PRN (19:10)
[2022-11-05] MEDS ORDERED: ACETAMINOPHEN 325 MG TAB PO PRN (19:10)
[2022-11-05] MEDS ORDERED: ENOXAPARIN INJ 40 MG/0.4 ML SYR SQ SCH (21:00)
[2022-11-06 06:27] LABS: Hematocrit (blood only) 43.6 % (40.1-51.0); Hemoglobin 14.7 g/dl (14.0-18.0); Mean Corpuscular Hemoglobin 31.4 pg (25.0-34.0); Mean Corpuscular Hgb Conc 33.7 g/dL (32.0-36.0); Mean Corpuscular Volume 93.2 fL (80.0-100.0); Mean Platelet Volume 11.1 fL (9.4-12.4); Platelet Count 197 K/uL (130-400); RDW Coefficient of Variation 11.5 % (11.5-14.5); RDW Standard Deviation 39.3 fL (36.4-46.3); Red Blood Count 4.68 M/uL (4.63-6.08)
[2022-11-06 06:31] LABS: BUN Creatinine Ratio 24.1 (10-20); Calcium 8.3 mg/dl (8.5-10.1); Creatinine Clr Calc Pharmacy 60.3 ml/min; Est GFR (African American) 96.5 ml/min; Est GFR (Non-African American) 83.2 ml/min; Magnesium 1.9 mg/dl (1.7-2.4); Phosphorus 3.4 mg/dl (2.5-4.9); Potassium 4.4 mmol/L (3.5-5.1)
[2022-11-06] MEDS ORDERED: TAMSULOSIN HCL 0.4 MG CAP PO SCH (09:00)
[2022-11-06] MEDS ORDERED: OSELTAMIVIR PHOSPHATE 75 MG CAP PO SCH (09:00)
[2022-11-06] MEDS ORDERED: FLUTICASONE PROPIONATE NA SPR 16 GM BTL NAE SCH (09:00)
[2022-11-06] MEDS ORDERED: FINASTERIDE 5 MG TAB PO SCH (09:00)
[2022-11-06] MEDS ORDERED: ATORVASTATIN 10 MG TAB PO SCH (09:00)
--- NOTE | 2022-11-06 10:28 | Discharge Summary ---
Discharge Summary Date of Service ADMIT: 11/05/2022 DISCHARGE: 11/06/2022 Notes For Next Care Provider Admitted for flu Checked for oxygen needs prior to discharge and none were present Medication Changes From Visit Robitussin AC PRN cough Combivent Respimat PRN SOB Oseltamivir x 5 days Admission HPI Per Admitting Provider 77 yo former smoker with COPD who presents with RON symptoms ongoing for 3 days including chest pain with deep breathing, cough, fevers, malaise, weakness. Nyquil/Dayquil not helping at home. Sleeping a lot and no energy. Reporst legs are weak although he is walking and requiring oxygen-borderline amount. No GI symptoms, able to tolerate PO. ROS otherwise negative. Admission Exam Per Admitting Provider CONSTITUTIONAL: WNWD, vitals as above, generally NAD EYES: normal conjunctivae, no scleral icterus ENT: external ear and nose normal, MMM NECK: trachea midline RESPIRATORY: rales throughout all posterior lung carranza, no wheezes or rhonchi, normal respiratory effort CARDIOVASCULAR: regular rate and rhythm, S1 and 2 heard without murmurs, gallops or rubs, no JVD, no peripheral edema CHEST: inspection of chest was normal GASTROINTESTINAL: soft, nontender, ND no guarding MUSCULOSKELETAL: strength 5/5 throughout, head is normocephalic and atraumatic, ambulates to and from bathroom independently SKIN: warm and dry, no rashes NEUROLOGIC: CN 2-12 grossly intact, no sensory deficit, normal cognition, normal speech, no tremor PSYCHIATRIC: alert cooperative and oriented to person, place and time. Euthymic mood, makes good eye contact, language grossly intact, recent and remote memory grossly intact. Principal Dx & Hospital Course #1 = Principal Diagnosis (1) Influenza A: (2) Hypoxia: (3) Weakness: (4) COPD (chronic obstructive pulmonary disease): (5) Chronic narcotic use: Plan 77 yo M presents with RON symptoms for 3 days with ongoing pleurisy, cough, fevers, malaise, and weakness. Oxygen supplementation was required on admission. COPD was present historically but there was no evidence of exacerbation. He was found to have influenza A and was placed on Tamiflu, nebulized bronchodilators as needed, and Robitussin AC as needed. Chest x-ray did not reveal evidence of pneumonia. Although he reported weakness he was ambulating independently and without issue around the room. A two-step test was performed on day of discharge and no oxygen was needed. He was discharged in stable condition with close primary care follow-up recommended. Discharge Exam CONSTITUTIONAL: WNWD, vitals as above, generally NAD EYES: normal conjunctivae, no scleral icterus ENT: external ear and nose normal, MMM NECK: trachea midline RESPIRATORY: clear to auscultation throughout, normal respiratory effort CARDIOVASCULAR: regular rate and rhythm, S1 and 2 heard without murmurs, gallops or rubs, no JVD, no peripheral edema CHEST: inspection of chest was normal GASTROINTESTINAL: soft, nontender, ND no guarding MUSCULOSKELETAL: strength 5/5 throughout, head is normocephalic and atraumatic, ambulates to and from bathroom independently SKIN: warm and dry, no rashes NEUROLOGIC: CN 2-12 grossly intact, no sensory deficit, normal cognition, normal speech, no tremor PSYCHIATRIC: alert cooperative and oriented to person, place and time. Euth ymic mood, makes good eye contact, language grossly intact, recent and remote memory grossly intact. Updated Medication List Medication Instructions Recorded Confirmed Type oxycodone 15 mg tablet 15 mg PO DAILY PRN pain #30 tabs 08/20/19 11/11/22 Rx fluticasone propionate 50 2 sprays intranasal DAILY #16 grams 05/13/20 11/11/22 Rx mcg/actuation nasal spray,suspension (Allergy Relief (fluticasone)) albuterol sulfate 2.5 mg/3 mL 2.5 mg (3 mL) inhalation Q6H PRN 06/08/20 11/11/22 Rx (0.083 %) solution for nebulization shortness of breath or wheezing #360 mL atorvastatin 10 mg tablet 10 mg PO DAILY 11/05/22 11/11/22 History ergocalciferol (vitamin D2) 1,250 50,000 unit PO .WEEK BUT IS HOLDING 11/05/22 11/11/22 History mcg (50,000 unit) capsule finasteride 5 mg tablet 5 mg PO QAM 11/05/22 11/11/22 History tamsulosin 0.4 mg capsule 0.4 mg PO DAILY 11/05/22 11/11/22 History codeine 10 mg-guaifenesin 100 mg/5 10 ml PO Q6H PRN cough #120 mL 11/06/22 11/11/22 Rx mL oral liquid ipratropium 20 mcg-albuterol 100 1 puff inhalation Q6H PRN sob #4 11/06/22 11/11/22 Rx mcg/actuation mist for inhalation grams (Combivent Respimat) oseltamivir 75 mg capsule (Tamiflu) 75 mg PO BID #10 caps 11/06/22 11/11/22 Rx Hospital Stay Data Consultations 11/05/22 17:05 ED Decision to Admit Stat Pending Results Patient Have Any Pending Studies at Discharge: No Discharge Instructions Given to Patient (Per Discharging Provider) Please take all medications as instructed on discharge list below. Please complete course of Tamiflu for total 5 days. Please note that you are still contagious while you are still coughing and symptomatic. This is important to be aware of so that you can mask when around others who are not ill. Please follow-up with your primary care provider within the next 1-2 weeks to ensure you are still doing well after returning home. It was a pleasure taking care of you! Please call if you have any questions or problems. You can reach a [facility] hospitalist on duty at 24 hours a day by calling [phone]. Take care of yourself. Aaliyah Coles, [facility] Hospitalist Total Time Total Time Spent Total Time Spent (In Minutes): 60
--- NOTE | 2022-11-06 22:48 | Electrocardiogram Report ---
Test Reason : Blood Pressure : / mmHG Vent. Rate : 093 BPM Atrial Rate : 093 BPM P-R Int : 134 ms QRS Dur : 082 ms QT Int : 360 ms P-R-T Axes : 074 -62 064 degrees QTc Int : 447 ms Sinus rhythm with Premature atrial complexes Left axis deviation Septal infarct , age undetermined Nonspecific ST and T wave abnormality Abnormal ECG When compared with ECG of 14-OCT-2016 07:24, Septal infarct is now Present Nonspecific T wave abnormality now evident in Anterior leads Confirmed by Marek Cantor ([id number]) on 11/06/2022 10:48:19 PM Referred By: Confirmed By:Marek Cantor
== END 2022-11-06 11:10 | disposition home or self-care (01) | DRG 195 ==
LOC: ED 13:52 → EDINP 17:07
DX: N40.0 Benign prostatic hyperplasia without lower urinary tract symptoms; E78.5 Hyperlipidemia, unspecified; K21.9 Gastro-esophageal reflux disease without esophagitis; Z79.891 Long term (current) use of opiate analgesic; Z88.8 Allergy status to other drugs, medicaments and biological substances; Z88.1 Allergy status to other antibiotic agents; Z88.2 Allergy status to sulfonamides; J10.1 Influenza due to other identified influenza virus with other respiratory manifestations; I48.91 Unspecified atrial fibrillation; Z87.891 Personal history of nicotine dependence; R09.02 Hypoxemia; J44.9 Chronic obstructive pulmonary disease, unspecified

== ENCOUNTER 2022-11-10 22:07 | Inpatient (IN) ==
[2022-11-10] MEDS ORDERED: ALBUT/IPRATROP 3MG/0.5MG NEB 3 ML VIAL NEB ONE (22:15)
[2022-11-10] MEDS ORDERED: MAGNESIUM SULFATE / D5W 1 GM/100 ML BAG IV STA (22:16)
--- NOTE | 2022-11-10 22:19 | Emergency Department Note ---
History of Present Illness General Chief complaint: Flu Like Symptoms Stated complaint: SHORTNESS OF BREATH History of Present Illness This 77-year-old diagnosed with influenza A this week presents to the ER comp laining of worsening shortness of breath with ongoing flu symptoms Location: Generalized Quality: Hard to breathe Severity: Moderate Duration: Past few days Timing: Started few days ago Context: Symptoms got worse and patient came in Modifying factors: better with oxygen; worse with activity Patient states he feels like he was discharged too soon from the hospital. He states he can barely breathe. He has been doing albuterol nebulizers today. Patient denies chest pain, abdominal pain, vomiting, diarrhea. He is speaking in full sentences for me. EMS gave Solu-Medrol. Home Medications Medication Instructions Recorded Confirmed Type oxycodone 15 mg tablet 15 mg PO DAILY PRN pain #30 tabs 08/20/19 11/11/22 Rx fluticasone propionate 50 2 sprays intranasal DAILY #16 grams 05/13/20 11/11/22 Rx mcg/actuation nasal spray,suspension (Allergy Relief (fluticasone)) albuterol sulfate 2.5 mg/3 mL 2.5 mg (3 mL) inhalation Q6H PRN 06/08/20 11/11/22 Rx (0.083 %) solution for nebulization shortness of breath or wheezing #360 mL atorvastatin 10 mg tablet 10 mg PO DAILY 11/05/22 11/11/22 History ergocalciferol (vitamin D2) 1,250 50,000 unit PO .WEEK BUT IS HOLDING 11/05/22 11/11/22 History mcg (50,000 unit) capsule finasteride 5 mg tablet 5 mg PO QAM 11/05/22 11/11/22 History tamsulosin 0.4 mg capsule 0.4 mg PO DAILY 11/05/22 11/11/22 History codeine 10 mg-guaifenesin 100 mg/5 10 ml PO Q6H PRN cough #120 mL 11/06/22 11/11/22 Rx mL oral liquid ipratropium 20 mcg-albuterol 100 1 puff inhalation Q6H PRN sob #4 11/06/22 11/11/22 Rx mcg/actuation mist for inhalation grams (Combivent Respimat) oseltamivir 75 mg capsule (Tamiflu) 75 mg PO BID #10 caps 11/06/22 11/11/22 Rx Allergies Allergy/AdvReac Type Severity Reaction Status Date / Time sulfamethoxazole Allergy Intermediate RASH Verified 11/11/22 00:45 trimethoprim Allergy Intermediate RASH Verified 11/11/22 00:45 doxycycline AdvReac Intermediate GI UPSET Verified 11/11/22 00:45 Past Med/Surg History Medical History BPH (benign prostatic hyperplasia) Chronic narcotic use COPD (chronic obstructive pulmonary disease) Depression with anxiety GERD (gastroesophageal reflux disease) Hernia Hyperlipidemia Hypertension Kidney cysts LAFB (left anterior fascicular block) Primary localized osteoarthritis of left knee Urethral stricture Surgical History History of bladder surgery h/o trauma from a tractor S/P urological surgery Family History Denies family history of Colon cancer Ovarian cancer Prostate cancer Myocardial infarction Breast cancer Social History Smoking Status: Former smoker Age Quit Using Tobacco: 62; Second Hand Exposure: No; Hx Alcohol Use: No Hx Substance Use: No Preferred Language: Cymro Communication Ability: Effective Visual Impairment: No Limitations Hearing Ability: Hard of Hearing Integrated Campaign Manager Required: No Beliefs That Will Affect Care: None marital status: Current Living Situation: Spouse and Family Current Living Situation Comment: lives with a 4 yo and 16 yo current occupational status: retired Feels Safe at Home: Yes Dental Care, Regularly: No Physical Activity Frequency: Does not Exercise Assistive Devices: CPAP Review of Systems A total of 10 systems reviewed and were otherwise negative Physical Exam Vital Signs Vital Signs - 24 hr 11/10/22 21:43 11/10/22 22:55 11/10/22 23:25 Temperature 37.6 C H Temperature Source Oral Pulse Rate 98 H 94 H Pulse Rate [Finger] 87 Respiratory Rate 20 18 20 Respiratory Effort / Characteristics Non-Labored Spontaneous Non-Labored Spontaneous Respiratory Depth Normal Blood Pressure 157/94 H Blood Pressure Mean 115 Pulse Oximetry 94 99 Oxygen Delivery Method Room Air Room Air Nebulizer Sepsis Recent Fever Within 48 Hours Yes Sepsis New/Unexplained Change in Mental Status No Sepsis Action Taken by Nursing No Action Required 12/24/22 23:00 11/10/22 23:30 11/11/22 00:00 Temperature Temperature Source Pulse Rate 88 93 H 87 Pulse Rate [Finger] Respiratory Rate 20 15 24 Respiratory Effort / Characteristics Respiratory Depth Blood Pressure 158/86 H 153/80 H 160/80 H Blood Pressure Mean 110 104 106 Pulse Oximetry Oxygen Delivery Method Sepsis Recent Fever Within 48 Hours Sepsis New/Unexplained Change in Mental Status Sepsis Action Taken by Nursing PHYSICAL EXAM: Vital Signs: Reviewed Nurse's notes. Oxygen saturation was 92% on room air. GENERAL: Elderly male speaking in full sentences, Alert, oriented and coherent. The patient is able to speak in complete sentences. NECK: Supple, non-tender. CHEST: Symmetrical expansion. no retractions no accessory muscle use. HEART: Regular rate and normal heart sounds, LUNGS: Breath sounds equal but significantly diminished in intensity on both sides. Bilateral wheezes heard but no rales or pleuritic rub. SKIN: The skin was without rashes, erythema, edema, or bruising. There is no tenting of the skin. Capillary reflex less than 2 seconds. HEAD: Normocephalic atraumatic. EARS: External auditory canals clear, EYES: Pupils equal round and reactive to light and accommodation. Conjunctivae without injection, sclerae without icterus. Extraocular movements intact. NOSE: Patent, turbinates without inflammation or discharge. MOUTH: Mucous membranes moist. Pharynx without erythema or exudate. Uvula midline. Airway patent. Tongue does not deviate. ABDOMEN: Positive bowel sounds x 4. Normal tympanic percussion. Soft, nontender, without masses or organomegaly. Medrano sign negative. No guarding or rebound tenderness. MUSCULOSKELETAL: No muscle atrophy, erythema, or edema noted. NEURO: Patient was alert and oriented to person place and time. Normal sensation to light and sharp touch. No focal neurological deficits. Course Administered Medications Discontinued Medications Albuterol (Albut/Ipratrop 3mg/0.5mg Neb 3 Ml Vial) 12 ml NEB ONE ONE; Protocol Stop: 11/10/22 22:16 Last Admin: 11/10/22 22:49 Dose: 12 ml Documented By: EML Magnesium Sulfate/Dextrose (Magnesium Sulfate / D5w) 1 gm in 100 mls @ 100 mls/hr IV NOW STA Stop: 11/10/22 23:15 Last Admin: 11/11/22 00:21 Dose: 100 mls/hr Documented By: JOSE Lorazepam (Lorazepam 2 Mg/1 Ml Vial) 1 mg IV NOW STA Stop: 11/11/22 00:00 Last Admin: 11/11/22 01:02 Dose: Not Given Documented By: JOSE Medical Decision Making Medical Records Attestation: I reviewed the patient's medical records. Home Medications Current Medication List: was personally reviewed by me Laboratory Data Attestation: I reviewed the patient's lab results. Result diagrams: 11/10/22 22:52 11/10/22 22:52 Lab Results 11/10/22 11/10/22 11/10/22 Range/Units 22:22 22:52 22:52 WBC 11.58 H (4.8-10.8) K/ul RBC 4.57 L (4.63-6.08) M/uL Hgb 14.4 (14.0-18.0) g/dl Hct 42.4 (40.1-51.0) % MCV 92.8 (80.0-100.0) fL MCH 31.5 (25.0-34.0) pg MCHC 34.0 (32.0-36.0) g/dL RDW Std Deviation 39.1 (36.4-46.3) fL RDW Coeff of Conner 11.5 (11.5-14.5) % Plt Count 249 (130-400) K/uL MPV 10.6 (9.4-12.4) fL Immature Gran % (Auto) 0.3 % Neut % (Auto) 85.0 % Lymph % (Auto) 7.8 % Garrett % (Auto) 6.5 % Eos % (Auto) 0.2 % Baso % (Auto) 0.2 % Neut # (Auto) 9.85 H (1.4-6.5) K/uL Lymph # (Auto) 0.90 L (1.2-3.4) K/uL Garrett # (Auto) 0.75 (0.24-0.82) K/uL Eos # (Auto) 0.02 (0-0.50) K/uL Baso # (Auto) 0.02 (0-0.2) K/uL Immature Gran # (Auto) 0.04 H (0.00-0.02) K/uL VBG pH (7.36-7.41) VBG pCO2 (38-50) mmHg VBG pO2 mmHg VBG HCO3 mmol/L VBG O2 Saturation % VBG Base Excess mEq/L Sodium 139 (136-145) mmol/L Potassium 4.0 (3.5-5.1) mmol/L Chloride 104 (98-107) mmol/L Carbon Dioxide 26 (21-32) mmol/L Anion Gap 9 (3-11) BUN 12 (6-23) mg/dl Creatinine 0.60 (0.6-1.4) mg/dl Est Cr Clr Drug Dosing 96.4 ml/min Est GFR ( Amer) 112.4 ml/min Est GFR (Non-Af Amer) 97.0 ml/min BUN/Creatinine Ratio 20.0 (10-20) Glucose 121 H (70-99(Fasting)) mg/dl Lactate (0.4-2.0) mmol/L Calcium 8.7 (8.5-10.1) mg/dl Magnesium 1.8 (1.7-2.4) mg/dl Total Bilirubin 0.6 (0.2-1.0) mg/dl Direct Bilirubin 0.2 (0-0.2) mg/dl AST 16 (13-39) U/L ALT 15 (7-52) U/L Alkaline Phosphatase 66 (34-104) U/L Troponin I High Sens 30.3 H (0-20) pg/ml Total Protein 6.7 (6.0-8.3) gm/dl Albumin 3.6 (3.4-5.0) gm/dl Procalcitonin (0-0.5) ng/ml SARS-CoV-2 (PCR) NEGATIVE (Negative) Influenza Type A (PCR) Positive A* (Neg) Influenza Type B (PCR) Negative (Neg) RSV (RT-PCR) Negative (Neg) 11/10/22 11/10/22 11/10/22 Range/Units 22:52 22:52 22:54 WBC (4.8-10.8) K/ul RBC (4.63-6.08) M/uL Hgb (14.0-18.0) g/dl Hct (40.1-51.0) % MCV (80.0-100.0) fL MCH (25.0-34.0) pg MCHC (32.0-36.0) g/dL RDW Std Deviation (36.4-46.3) fL RDW Coeff of Conner (11.5-14.5) % Plt Count (130-400) K/uL MPV (9.4-12.4) fL Immature Gran % (Auto) % Neut % (Auto) % Lymph % (Auto) % Garrett % (Auto) % Eos % (Auto) % Baso % (Auto) % Neut # (Auto) (1.4-6.5) K/uL Lymph # (Auto) (1.2-3.4) K/uL Garrett # (Auto) (0.24-0.82) K/uL Eos # (Auto) (0-0.50) K/uL Baso # (Auto) (0-0.2) K/uL Immature Gran # (Auto) (0.00-0.02) K/uL VBG pH 7.45 H (7.36-7.41) VBG pCO2 41 (38-50) mmHg VBG pO2 53 mmHg VBG HCO3 29 mmol/L VBG O2 Saturation 85.7 % VBG Base Excess 4.1 mEq/L Sodium (136-145) mmol/L Potassium (3.5-5.1) mmol/L Chloride (98-107) mmol/L Carbon Dioxide (21-32) mmol/L Anion Gap (3-11) BUN (6-23) mg/dl Creatinine (0.6-1.4) mg/dl Est Cr Clr Drug Dosing ml/min Est GFR ( Amer) ml/min Est GFR (Non-Af Amer) ml/min BUN/Creatinine Ratio (10-20) Glucose (70-99(Fasting)) mg/dl Lactate 1.0 (0.4-2.0) mmol/L Calcium (8.5-10.1) mg/dl Magnesium (1.7-2.4) mg/dl Total Bilirubin (0.2-1.0) mg/dl Direct Bilirubin (0-0.2) mg/dl AST (13-39) U/L ALT (7-52) U/L Alkaline Phosphatase (34-104) U/L Troponin I High Sens (0-20) pg/ml Total Protein (6.0-8.3) gm/dl Albumin (3.4-5.0) gm/dl Procalcitonin 0.08 (0-0.5) ng/ml SARS-CoV-2 (PCR) (Negative) Influenza Type A (PCR) (Neg) Influenza Type B (PCR) (Neg) RSV (RT-PCR) (Neg) Imaging Data Attestation: I personally reviewed and interpreted this imaging study as follows: Radiologist's Impression: Chest X-Ray 11/10/22 22:15 XR chest 1V portable CLINICAL HISTORY: Sepsis TECHNIQUE: Single frontal radiograph of the chest was obtained. Comparison: Comparison is made to chest radiograph 11/05/2022 FINDINGS: No lines and tubes are seen. Calcified aortic knob is seen. Reticular interstitial opacities are seen. No evidence of pleural effusion or pneumothorax. IMPRESSION: No acute abnormalities and in particular no evidence of pneumonia. ACT 112: Negative or not required by law. Electronically signed by: Kieran Gutierrez M.D. 11/10/2022 10:30 PM [facility] Narrative Prior records/ancillary studies reviewed. Triage Nursing notes reviewed. Additional history obtained from EMS. The patient's history was concerning for ongoing flu symptoms Differential diagnosis: Etiologies such as viral syndrome, otitis, pharyngitis, pneumonia, influenza, meningitis, urinary tract infection, sepsis, bacteremia, as well as others were entertained. Physical examination: As above ER treatment provided: An order was placed for continuous cardiac monitoring. The monitor shows a rate of 60-1 50 with a sinus rhythm. Nebulizer, magnesium On reassessment the patient felt better. Diagnostics interpreted by me: ECG: Ordered for shortness of breath EKG: Normal sinus, left anterior fascicular block, no acute ST-T changes. Impression normal sinus rhythm left anterior fascicular block interpreted by myself I think arrhythmia is unlikely. EKG shows no interval abnormalities such as QT prolongation or WPW. There are no findings to suggest Brugada syndrome. Cardiac monitoring in the emergency department reveals no tachycardic or bradycardic dysrhythmia. Hypertrophic cardiomyopathy was considered but there are no clear historical elements pointing toward this. EKG is not suggestive. The QRS voltage is not extremely large The labs revealed positive influenza Minimally elevated troponin and repeat was ordered Negative lactic. Blood cultures pending Imaging studies: as above Patient is adamantly refusing his CTA. Consultation: A consultation was placed with hospitalist. The case was discussed and diagnostics were reviewed. The patient was evaluated in the ER for further treatment. This appears to be consistent with influenza with COPD exacerbation. Patient felt too short of breath. He is requesting to stay. Medicine was consulted. He will be evaluated for admission. He is adamantly refusing his CAT scan. He states he is too claustrophobic for it. Patient is still screaming at me saying he is short of breath despite speaking in full sentences his sats are above 90%. He was given Ativan. by the evaluation outlined above emergent etiologies such as otitis, pharyngitis, pneumonia, meningitis, urinary tract infection, sepsis, bacteremia, as well as others were deemed relatively unlikely. The pt informed about the findings as listed above. All questions were answered and pleased with the treatment. The chart was completed utilizing [employer] Speech voice recognition software. Grammatical errors, random word insertions, pronoun errors, and incomplete sentences are an occassional consequence of this system due to software limitations, ambient noise, and hardware issues. Any formal questions or concerns about the content, text, or information contained within the body of this dictation should be directly addressed to the physician personnel security assistant for clarification. Impression & Plan Influenza A, COPD (chronic obstructive pulmonary disease) Discharge Plan Visit Data Chief Complaint: Flu Like Symptoms Stated Complaint: SHORTNESS OF BREATH ED Provider: [facility] ED Midlevel Provider: Beena Patricia Discharge Problem: Influenza A, COPD (chronic obstructive pulmonary disease) Patient Disposition: Admitted As Inpatient Condition: Fair Forms Stand Alone Forms: [facility] Prescriptions Prescriptions: No Action fluticasone propionate [Allergy Relief (fluticasone)] 50 mcg/actuation spray,suspension 2 sprays INTNAS DAILY Qty: 16 5RF Rx Instructions: administer into each nostril albuterol sulfate 2.5 mg /3 mL (0.083 %) solution for nebulization 2.5 mg INH Q6H PRN (Reason: shortness of breath or wheezing) Qty: 360 1RF oxycodone 15 mg tablet 15 mg PO DAILY PRN (Reason: pain) Qty: 30 0RF atorvastatin 10 mg tablet 10 mg PO DAILY tamsulosin 0.4 mg capsule 0.4 mg PO DAILY ergocalciferol (vitamin D2) 1,250 mcg (50,000 unit) capsule 50,000 unit PO .WEEK BUT IS HOLDING Rx Instructions: TAKES ON SUNDAYS. finasteride 5 mg tablet 5 mg PO QAM oseltamivir [Tamiflu] 75 mg Capsule 75 mg PO BID Qty: 10 0RF Rx Instructions: LAST DAY IS TOMARROW Combivent Respimat 20-100 mcg/actuation mist 1 puff inhalation Q6H PRN (Reason: sob) Qty: 4 0RF codeine-guaifenesin 10-100 mg/5 mL liquid 10 ml PO Q6H PRN (Reason: cough) Qty: 120 0RF Rx Instructions: Do not use with other narcotics, will make you drowsy, do not drive after taking Referrals Referrals: PCP,NO [Primary Care Provider] - : COPD (chronic obstructive pulmonary disease) Qualifiers: COPD type: COPD with acute exacerbation Qualified Code(s): J44.1 - Chronic obstructive pulmonary disease with (acute) exacerbation
--- NOTE | 2022-11-10 22:32 | XRay Report ---
XR chest 1V portable CLINICAL HISTORY: Sepsis TECHNIQUE: Single frontal radiograph of the chest was obtained. Comparison: Comparison is made to chest radiograph 11/05/2022 FINDINGS: No lines and tubes are seen. Calcified aortic knob is seen. Reticular interstitial opacities are seen . No evidence of pleural effusion or pneumothorax. IMPRESSION: No acute abnormalities and in particular no evidence of pneumonia. ACT 112: Negative or not required by law. Electronically signed by: Kieran Gutierrez M.D. 11/10/2022 10:30 PM
[2022-11-10 23:14] LABS: Basophils # (auto) 0.02 K/uL (0-0.2); Basophils % (auto) 0.2 %; Eosinophils # (auto) 0.02 K/uL (0-0.50); Eosinophils % (auto) 0.2 %; Hematocrit (blood only) 42.4 % (40.1-51.0); Hemoglobin 14.4 g/dl (14.0-18.0); Immature Granulocytes # (auto) 0.04 K/uL (0.00-0.02); Immature Granulocytes % (auto) 0.3 %; Lymphocytes % (auto) 7.8 %; Mean Corpuscular Hemoglobin 31.5 pg (25.0-34.0); Mean Corpuscular Volume 92.8 fL (80.0-100.0); Mean Platelet Volume 10.6 fL (9.4-12.4); Monocytes # (auto) 0.75 K/uL (0.24-0.82); Monocytes % (auto) 6.5 %; Neutrophils # (auto) 9.85 K/uL (1.4-6.5); Platelet Count 249 K/uL (130-400); RDW Coefficient of Variation 11.5 % (11.5-14.5); RDW Standard Deviation 39.1 fL (36.4-46.3); Red Blood Count 4.57 M/uL (4.63-6.08); White Blood Count 11.58 K/ul (4.8-10.8)
[2022-11-10 23:17] LABS: Influenza B virus by PCR Negative (Neg); RSV by PCR Negative (Neg); SARS CoV2 RNA(COVID-19) Ceph NEGATIVE (Negative)
[2022-11-10 23:25] LABS: Influenza A virus by PCR Positive (Neg)
[2022-11-10 23:37] LABS: Albumin Level 3.6 gm/dl (3.4-5.0); Bilirubin Direct 0.2 mg/dl (0-0.2); Bilirubin,Total 0.6 mg/dl (0.2-1.0); Calcium 8.7 mg/dl (8.5-10.1); Creatinine Clr Calc Pharmacy 96.4 ml/min; Est GFR (African American) 112.4 ml/min; Magnesium 1.8 mg/dl (1.7-2.4); Total Protein 6.7 gm/dl (6.0-8.3)
[2022-11-10 23:40] LABS: Troponin I High Sensitivity 30.3 pg/ml (0-20)
[2022-11-10] MEDS ORDERED: LORazepam 2 MG/1 ML VIAL IV STA (23:59)
[2022-11-11 00:07] LABS: Base Excess VBG 4.1 mEq/L; HCO3 VBG 29 mmol/L; Oxygen Saturation VBG 85.7 %; PCO2 VBG 41 mmHg (38-50); PO2 VBG 53 mmHg; pH VBG 7.45 (7.36-7.41)
[2022-11-11] MEDS ORDERED: NITROGLYCERIN SL 0.4 MG/TAB TAB SL PRN (02:20)
[2022-11-11] MEDS ORDERED: IPRATROPIUM BROMIDE/ALBUTEROL respimat INH INH PRN (02:20)
[2022-11-11] MEDS ORDERED: ACETAMINOPHEN 325 MG TAB PO PRN (02:20)
[2022-11-11] MEDS ORDERED: oxyCODONE HCL IR 5 MG TAB (IMMEDIATE RELEASE) PO PRN (02:20)
[2022-11-11] MEDS ORDERED: AZITHROMYCIN 250 MG TAB PO ONE (02:20)
[2022-11-11] MEDS ORDERED: ALBUTEROL HFA 8 GM INHALER INH PRN (02:46)
[2022-11-11] MEDS ORDERED: IPRATROPIUM BROMIDE HFA INHALER INH PRN (02:46)
[2022-11-11 03:49] LABS: Appearance Urine Clear (Clear); Bilirubin Urine Negative (Negative); Blood Urine Negative (Negative); Color Urine Yellow; Glucose Urine UA Negative (Negative); Ketones Urine 1+ (Negative); Leukocyte Esterase Urine Negative (Negative); Nitrite Urine Negative (Negative); Protein Urine Negative (Negative); Specific Gravity Urine 1.014 (1.000-1.030); Urobilinogen Urine Negative (Negative); pH Urine 5.5 (4.5-7.5)
--- NOTE | 2022-11-11 05:25 | History and Physical Report ---
DATE OF ADMISSION: 11/11/2022. CHIEF COMPLAINT: Shortness of breath. HISTORY OF PRESENT ILLNESS: A 77-year-old male with past medical history significant for hyperlipidemia, history of COPD, chronic pansinusitis, history of left anterior fascicular block, GERD, BPH, history of urethral stricture, osteoarthritis, chronic back pain, depression, who presents with shortness of breath. The patient was recently here with the flu. He still has one more day of Tamiflu to go, but he says walking short distance makes him very short of breath, has cough, having had developed again fever today. Denies any headache. No neck pain. Has chronic back pain. Denies any chest pain. No nausea, no vomiting, no abdominal pain. Normal bowel and bladder movements. Has some runny nose and sore throat. Somewhat hard of hearing. Resting comfortably and hemodynamically stable. ALLERGIES: BACTRIM, DOXYCYCLINE. PAST MEDICAL HISTORY: As mentioned above. PAST SURGICAL HISTORY: Aspiration of bladder by insertion of suprapubic catheter, colonoscopy, cystoscopy, multiple treatment of stricture with cystoscopy, urethral surgeries, cystourethroscopy with biopsy, hiatal hernia repair, laparotomy, revision of urethra, surgical drainage of the bladder. MEDICATIONS: The patient is on albuterol nebulization every 6 hours p.r.n., atorvastatin 10 mg p.o. daily, codeine-guaifenesin 10 mL p.o. q. 6 hours p.r.n., vitamin D 50,000 units p.o. weekly, finasteride 5 mg p.o. daily, Flonase 2 sprays intranasal daily, Combivent 1 puff inhalation q. 6 hours p.r.n., Tamiflu 75 mg p.o. b.i.d., last dose evening of 11/11/2022, oxycodone 10 mg p.o. daily p.r.n., Flomax 0.4 mg p.o. daily. FAMILY HISTORY: Significant for son has heart disorder, father has hypertension. SOCIAL HISTORY: , former smoker, quit smoking in 2006, smoked 3 packs a day for 45 years. Alcohol, not in the last few months. No drug use. REVIEW OF SYSTEMS: As per HPI. Rest of review of systems is negative. PHYSICAL EXAMINATION: GENERAL: The patient is of moderate build, not in acute distress. VITAL SIGNS: Temperature 37.6, pulse 100, respiratory rate 20, blood pressure 149/69, oxygen 99%. HEENT: Pupils equal, round and reactive to light. Oral mucosa moist. NECK: No JVD, no neck masses. CARDIOVASCULAR: S1 and S2 heard. Regular rate and rhythm. No murmur, no gallop. RESPIRATORY SYSTEM: Normal AP diameter. No accessory muscle use. Bilateral rhonchi heard. No crackles. ABDOMEN: Soft, bowel sounds present, nontender, no distention. CENTRAL NERVOUS SYSTEM: Cranial nerves II-XII grossly intact, nonfocal. EXTREMITIES: No edema, no erythema. LABORATORY DATA: WBC 11, hemoglobin 14.4, hematocrit 42.4, platelets 249. Venous blood gas, pH of 7.45, pCO2 of 41. Sodium 139, potassium 4, chloride 104, bicarbonate 26, BUN 12, creatinine 0.6, serum glucose 121. Lactate 1, calcium 8.7, magnesium 1.8, total bilirubin 0.6, direct bilirubin 0.2, AST 16, ALT 15, alkaline phosphatase 66. Troponin I high sensitivity 13.3. Procalcitonin 0.08. Influenza A PCR positive. SARS-CoV-2 PCR negative. RSV PCR negative. IMAGING DATA: Chest x-ray, no acute findings. EKG: Normal sinus rhythm at a rate of 93, left anterior fascicular block, no acute ST changes seen, QTc of 430. ASSESSMENT AND PLAN: This is a 77-year-old male who presents with ongoing shortness of breath. 1. Shortness of breath. Influenza A positive. Chronic obstructive pulmonary disease exacerbation. Continue Tamiflu course and starting on azithromycin p.o. 500 mg for day one and 250 from second through fifth day. Nebs around the clock and p.r.n. Closely monitor in the [employer]. On droplet precaution. 2. Hyperlipidemia, on statin. 3. History of benign prostatic hyperplasia. Continue Flomax and finasteride. 4. Chronic back pain. Continue his home pain medications. 5. Deep venous thrombosis prophylaxis: Lovenox. DISPOSITION: Closely monitor in the [employer]. PT/OT prior to discharge. Social service to help with discharge planning. Job ID: [id number] [facility]
[2022-11-11] MEDS: ENOXAPARIN INJ 40 MG/0.4 ML SYR SQ SCH (05:47)
[2022-11-11 06:33] LABS: Hematocrit (blood only) 42.4 % (40.1-51.0); Hemoglobin 14.3 g/dl (14.0-18.0); Mean Corpuscular Hemoglobin 31.4 pg (25.0-34.0); Mean Corpuscular Hgb Conc 33.7 g/dL (32.0-36.0); Mean Platelet Volume 10.7 fL (9.4-12.4); Platelet Count 243 K/uL (130-400); RDW Coefficient of Variation 11.3 % (11.5-14.5); RDW Standard Deviation 38.6 fL (36.4-46.3); Red Blood Count 4.56 M/uL (4.63-6.08); White Blood Count 8.17 K/ul (4.8-10.8)
[2022-11-11 06:50] LABS: BUN Creatinine Ratio 16.5 (10-20); Calcium 8.8 mg/dl (8.5-10.1); Creatinine Clr Calc Pharmacy 73.2 ml/min; Est GFR (African American) 100.4 ml/min; Est GFR (Non-African American) 86.6 ml/min; Magnesium 2.2 mg/dl (1.7-2.4); Potassium 4.6 mmol/L (3.5-5.1)
[2022-11-11 07:10] LABS: Basophils # (auto) 0.01 K/uL (0-0.2); Basophils % (auto) 0.1 %; Immature Granulocytes # (auto) 0.02 K/uL (0.00-0.02); Immature Granulocytes % (auto) 0.2 %; Lymphocytes # (auto) 0.49 K/uL (1.2-3.4); Monocytes # (auto) 0.13 K/uL (0.24-0.82); Monocytes % (auto) 1.6 %; Neutrophils # (auto) 7.52 K/uL (1.4-6.5); Neutrophils % (auto) 92.1 %
[2022-11-11] MEDS: IPRATROPIUM BROMIDE NEB SOLN 0.02% 2.5 ML VIAL INH SCH ×4 (07:42→18:01)
[2022-11-11] MEDS: LEVALBUTEROL 1.25MG/0.5ML NEB INH SCH ×4 (07:42→18:01)
[2022-11-11] MEDS ORDERED: XOPENEX/ATROVENT 1.25mg/0.5MG NEB COMBO NEB SCH (09:00)
[2022-11-11] MEDS: FINASTERIDE 5 MG TAB PO SCH (10:31)
[2022-11-11] MEDS: methylPREDNISolone 40 MG in SYRINGE 0 ML IV SCH ×2 (10:31→15:27)
[2022-11-11] MEDS: FLUTICASONE PROPIONATE NA SPR 16 GM BTL SCH (10:32)
[2022-11-11] MEDS: TAMSULOSIN HCL 0.4 MG CAP PO SCH (10:32)
[2022-11-11] MEDS: OSELTAMIVIR PHOSPHATE 75 MG CAP PO SCH ×2 (10:32→21:11)
[2022-11-11] MEDS: ATORVASTATIN 10 MG TAB PO SCH (10:32)
--- NOTE | 2022-11-11 14:38 | Electrocardiogram Report ---
Test Reason : Blood Pressure : / mmHG Vent. Rate : 093 BPM Atrial Rate : 093 BPM P-R Int : 132 ms QRS Dur : 082 ms QT Int : 346 ms P-R-T Axes : 085 -58 069 degrees QTc Int : 430 ms Poor data quality, interpretation may be adversely affected Normal sinus rhythm Left anterior fascicular block Septal infarct (cited on or before 05-NOV-2022) Abnormal ECG When compared with ECG of 05-NOV-2022 14:04, Premature atrial complexes are no longer Present Nonspecific ST and T wave abnormality has improved Confirmed by Rashi Meng ([id number]) on 11/11/2022 2:37:49 PM Referred By: REFERRED SELF Confirmed By:Rashi Meng
[2022-11-12] MEDS: methylPREDNISolone 40 MG in SYRINGE 0 ML IV SCH ×2 (00:03→09:59)
[2022-11-12] MEDS: ENOXAPARIN INJ 40 MG/0.4 ML SYR SQ SCH (05:35)
[2022-11-12] MEDS: LEVALBUTEROL 1.25MG/0.5ML NEB INH SCH ×2 (05:53→10:24)
[2022-11-12] MEDS: IPRATROPIUM BROMIDE NEB SOLN 0.02% 2.5 ML VIAL INH SCH ×2 (05:53→10:24)
[2022-11-12 06:44] LABS: Hematocrit (blood only) 41.8 % (40.1-51.0); Hemoglobin 14.1 g/dl (14.0-18.0); Mean Corpuscular Hemoglobin 31.3 pg (25.0-34.0); Mean Corpuscular Hgb Conc 33.7 g/dL (32.0-36.0); Mean Corpuscular Volume 92.7 fL (80.0-100.0); Mean Platelet Volume 10.7 fL (9.4-12.4); Platelet Count 292 K/uL (130-400); RDW Coefficient of Variation 11.4 % (11.5-14.5); RDW Standard Deviation 38.7 fL (36.4-46.3); Red Blood Count 4.51 M/uL (4.63-6.08); White Blood Count 20.27 K/ul (4.8-10.8)
[2022-11-12 06:50] LABS: BUN Creatinine Ratio 28.9 (10-20); Calcium 8.5 mg/dl (8.5-10.1); Creatinine Clr Calc Pharmacy 76.1 ml/min; Magnesium 2.2 mg/dl (1.7-2.4); Phosphorus 3.1 mg/dl (2.5-4.9); Potassium 4.2 mmol/L (3.5-5.1)
--- NOTE | 2022-11-12 07:23 | Hospitalist Progress Note ---
Date of Service November 12, 2022 Assessment & Plan (1) Influenza A: Plan: This is a 77-year-old male who presents with ongoing shortness of breath. 1. Shortness of breath. Influenza A positive. Chronic obstructive pulmonary disease exacerbation. Continue Tamiflu course Starting on azithromycin on admission. Will hold now given poss. NSVT. Nebs around the clock and p.r.n ordered, will decrease to prn given episode of NSVT. Closely monitor in the med tele. On droplet precaution. Patient responded to prednisone and azithromycin. We are holding azithromycin now, so will start ceftriaxone and Doxy for now. 11/12 - patient feeling somewhat better. Reports that his mucus is now thinner. NSVT -Episode of 8 beats, patient asymptomatic -Electrolytes, potassium and magnesium within normal limit -Continue to closely monitor 2. Hyperlipidemia, on statin. 3. History of benign prostatic hyperplasia. Continue Flomax and finasteride. 4. Chronic back pain. Continue his home pain medications. Deep venous thrombosis prophylaxis: Lovenox. DISPOSITION: Closely monitor in the med tele. PT/OT prior to discharge. Admission and Anticipated Discharge Date Admission Date: November 11, 2022 Subjective Pt seen in follow up of shortness of breath, COPD exacerbation, influenza A positive Recently hospitalized, when he was found to be positive for influenza Contacted by nurse that they saw Hollis tach on telemetry 8 beats. When I saw the patient, patient is lying in bed in no acute distress, says that he was just trying to cough up some thick phlegm. No chest pain or palpitations. No dizziness no lightheadedness. Also denies abdominal pain nausea vomiting. Review of Systems Review of Systems: All systems reviewed & are unremarkable except as noted in Subjective Physical Exam Physical Exam: GENERAL: The patient is of moderate build, not in acute distress. HEENT: Pupils equal, round and reactive to light. EOMI. Oral mucosa moist. NECK: No JVD, no neck masses. CARDIOVASCULAR: S1 and S2 heard. Regular rate and rhythm. No murmur, no gallop. RESPIRATORY: Normal AP diameter. No accessory muscle use. Bilateral rhonchi heard. No crackles. ABDOMEN: Soft, bowel sounds present, nontender, no distention. NEURO:Alert oriented, answer questions appropriately. Moves extremities. EXTREMITIES: No edema, no erythema. Results & Data Results & Data ([facility]) Vital Signs (Past 12 Hours) Vital Signs Temp Pulse Pulse Resp BP Pulse Ox O2 Del Method 11/12/22 05:55 89 18 95 Room Air 11/12/22 03:40 36.6 C 82 20 138/71 92 Room Air 11/12/22 00:55 85 11/11/22 23:44 Room Air 11/11/22 23:29 36.5 C 90 18 153/69 H 95 Room Air Laboratory Results 11/12/22 11/12/22 11/11/22 Range/Units 06:02 06:02 10:58 WBC 20.27 H D (4.8-10.8) K/ul RBC 4.51 L (4.63-6.08) M/uL Hgb 14.1 (14.0-18.0) g/dl Hct 41.8 (40.1-51.0) % MCV 92.7 (80.0-100.0) fL MCH 31.3 (25.0-34.0) pg MCHC 33.7 (32.0-36.0) g/dL RDW Std Deviation 38.7 (36.4-46.3) fL RDW Coeff of Conner 11.4 L (11.5-14.5) % Plt Count 292 (130-400) K/uL MPV 10.7 (9.4-12.4) fL Sodium 138 (136-145) mmol/L Potassium 4.2 (3.5-5.1) mmol/L Chloride 104 (98-107) mmol/L Carbon Dioxide 27 (21-32) mmol/L Anion Gap 7 (3-11) BUN 22 (6-23) mg/dl Creatinine 0.76 (0.6-1.4) mg/dl Est Cr Clr Drug Dosing 76.1 ml/min Est GFR ( Amer) 102.0 ml/min Est GFR (Non-Af Amer) 88.0 ml/min BUN/Creatinine Ratio 28.9 H (10-20) Glucose 143 H (70-99(Fasting)) mg/dl Calcium 8.5 (8.5-10.1) mg/dl Phosphorus 3.1 (2.5-4.9) mg/dl Magnesium 2.2 (1.7-2.4) mg/dl Troponin I High Sens 13.8 D (0-20) pg/ml Medications Administered Current Inpatient Medications Acetaminophen (Acetaminophen 325 Mg Tab) 650 mg PO Q4H PRN PRN Reason: Pain or Fever Stop: 12/11/22 02:19 Last Admin: 11/11/22 21:11 Dose: 650 mg Albuterol (Albuterol Hfa 8 Gm Inhaler) 1 puffs INH Q6H PRN; Protocol PRN Reason: SOB/WHEEZING Stop: 12/11/22 02:45 Atorvastatin Calcium (Atorvastatin 10 Mg Tab) 10 mg PO DAILY THI Stop: 12/11/22 08:59 Last Admin: 11/11/22 10:32 Dose: 10 mg Azithromycin (Azithromycin 250 Mg Tab) 250 mg PO QAM THI Stop: 11/15/22 22:59 Enoxaparin Sodium (Enoxaparin Inj 40 Mg/0.4 Ml Syr) 40 mg SQ Q24H THI Stop: 12/11/22 05:59 Last Admin: 11/12/22 05:35 Dose: Not Given Finasteride (Finasteride 5 Mg Tab) 5 mg PO QAM [facility] Stop: 12/11/22 08:59 Last Admin: 11/11/22 10:31 Dose: 5 mg Fluticasone Propionate (Fluticasone Propionate Na Spr 16 Gm Btl) 2 sprays NA DAILY [facility] Stop: 12/11/22 08:59 Last Admin: 11/11/22 10:32 Dose: 2 sprays Guaifenesin/Codeine Phosphate (Guaifenesin/Codeine 200mg/20mg 10ml Udc) 10 ml PO Q6H PRN PRN Reason: cough Stop: 12/11/22 02:19 Methylprednisolone 40 mg/ (Syringe) 0.64 mls @ 1.5 mls/min IV Q8H THI Stop: 12/11/22 07:59 Last Admin: 11/12/22 00:03 Dose: 1.5 mls/min Ipratropium [place] (Ipratropium [place] Neb Soln 0.02% 2.5 Ml Vial) 0.5 mg INH QIDR THI Stop: 12/11/22 06:59 Last Admin: 11/12/22 05:53 Dose: 0.5 mg Ipratropium [place] (Ipratropium [place] Hfa Inhaler) 1 puffs INH Q6H PRN; Protocol PRN Reason: SOB/WHEEZING Stop: 12/11/22 02:45 Levalbuterol HCl (Levalbuterol 1.25mg/0.5ml Neb) 1.25 mg INH QIDR [facility] Stop: 12/11/22 06:59 Last Admin: 11/12/22 05:53 Dose: 1.25 mg Levalbuterol HCl (Levalbuterol Hcl 1.25 Mg/3 Ml Neb) 1.25 mg NEB Q2H PRN; Protocol PRN Reason: Shortness Of Breath Or Wheezing Stop: 12/11/22 02:19 Nitroglycerin (Nitroglycerin Sl 0.4 Mg/Tab Tab) 0.4 mg SL UD PRN PRN Reason: Chest Pain Stop: 12/11/22 02:19 Oseltamivir Phosphate (Oseltamivir Phosphate 75 Mg Cap) 75 mg PO BID [facility]; Protocol Stop: 11/13/22 23:00 Last Admin: 11/11/22 21:11 Dose: 75 mg Oxycodone HCl (Oxycodone Hcl Ir 5 Mg Tab (Immediate Release)) 15 mg PO DAILY PRN PRN Reason: pain Stop: 11/25/22 02:19 Tamsulosin HCl (Tamsulosin Hcl 0.4 Mg Cap) 0.4 mg PO DAILY [facility] Stop: 12/11/22 08:59 Last Admin: 11/11/22 10:32 Dose: 0.4 mg
[2022-11-12] MEDS ORDERED: AZITHROMYCIN 250 MG TAB PO SCH (09:00)
[2022-11-12] MEDS: FINASTERIDE 5 MG TAB PO SCH (09:59)
[2022-11-12] MEDS: TAMSULOSIN HCL 0.4 MG CAP PO SCH (09:59)
[2022-11-12] MEDS: OSELTAMIVIR PHOSPHATE 75 MG CAP PO SCH ×2 (09:59→21:13)
[2022-11-12] MEDS: FLUTICASONE PROPIONATE NA SPR 16 GM BTL SCH (10:00)
[2022-11-12] MEDS: ATORVASTATIN 10 MG TAB PO SCH (10:00)
[2022-11-12] MEDS: cefTRIAXone SODIUM 1,000 MG in DEXTROSE 5% AD-VAN 50 ML IV SCH (15:38)
[2022-11-12] MEDS: DOXYCYCLINE HYCLATE 100 MG CAP PO SCH (21:12)
[2022-11-12] MEDS: guaiFENesin 600 MG TABCR PO SCH (21:13)
[2022-11-12] MEDS: IPRATROPIUM BROMIDE NEB SOLN 0.02% 2.5 ML VIAL INH PRN (22:20)
[2022-11-12] MEDS: LEVALBUTEROL HCL 1.25 MG/3 ML NEB NEB PRN (22:20)
[2022-11-13] MEDS: ENOXAPARIN INJ 40 MG/0.4 ML SYR SQ SCH (05:17)
[2022-11-13] MEDS ORDERED: methylPREDNISolone 40 MG in SYRINGE 0 ML IV SCH (09:00)
[2022-11-13] MEDS: ATORVASTATIN 10 MG TAB PO SCH (09:02)
[2022-11-13] MEDS: guaiFENesin 600 MG TABCR PO SCH (09:02)
[2022-11-13] MEDS: FINASTERIDE 5 MG TAB PO SCH (09:02)
[2022-11-13] MEDS: FLUTICASONE PROPIONATE NA SPR 16 GM BTL SCH (09:02)
[2022-11-13] MEDS: TAMSULOSIN HCL 0.4 MG CAP PO SCH (09:02)
[2022-11-13] MEDS: DOXYCYCLINE HYCLATE 100 MG CAP PO SCH (09:02)
[2022-11-13] MEDS: OSELTAMIVIR PHOSPHATE 75 MG CAP PO SCH (09:02)
--- NOTE | 2022-11-13 09:16 | Hospitalist Progress Note ---
Date of Service November 13, 2022 Assessment & Plan (1) Influenza A: Plan: This is a 77-year-old male who presents with ongoing shortness of breath. 1. Shortness of breath. Influenza A positive. Chronic obstructive pulmonary disease exacerbation. Continue Tamiflu course Starting on azithromycin on admission. Will hold now given poss. NSVT. Nebs around the clock and p.r.n ordered, will decrease to prn given episode of NSVT. Closely monitor in the med tele. On droplet precaution. Patient responded to prednisone and azithromycin. We are holding azithromycin now, so will start ceftriaxone and Doxy for now. 11/12 - patient feeling somewhat better. Reports that his mucus is now thinner. -patient is breathing comfortably on room air, he is coughing less, and has much less mucus production. He is interested in going home. Will discharge on prednisone and doxycycline. Patient has PCP follow-up scheduled for Saturday. NSVT -Episode of 8 beats on 11/12, patient asymptomatic -Electrolytes, potassium and magnesium within normal limit -Continue to closely monitor - no further arrhythmia noted 2. Hyperlipidemia, on statin. 3. History of benign prostatic hyperplasia. Continue Flomax and finasteride. 4. Chronic back pain. Continue his home pain medications. Deep venous thrombosis prophylaxis: Lovenox. DISPOSITION:Plan to DC home Admission and Anticipated Discharge Date Admission Date: November 11, 2022 Subjective Pt seen in follow up of shortness of breath, COPD exacerbation, influenza A positive Recently hospitalized, when he was found to be positive for influenza No chest pain or palpitations. No dizziness no lightheadedness. Mucus prod uction is decreased. Also denies abdominal pain nausea vomiting. He is interested in going home. Review of Systems Review of Systems: All systems reviewed & are unremarkable except as noted in Subjective Physical Exam Physical Exam: GENERAL: The patient is of moderate build, not in acute distress. HEENT: Pupils equal, round and reactive to light. EOMI. Oral mucosa moist. NECK: No JVD, no neck masses. CARDIOVASCULAR: S1 and S2 heard. Regular rate and rhythm. No murmur, no gallop. RESPIRATORY: Normal AP diameter. No accessory muscle use.Minimal rhonchi, no wheezing. ABDOMEN: Soft, bowel sounds present, nontender, no distention. NEURO:Alert oriented, answer questions appropriately. Moves extremities. EXTREMITIES: No edema, no erythema. Results & Data Results & Data ([facility]) Vital Signs (Past 12 Hours) Vital Signs Temp Pulse Pulse Resp BP BP Pulse Ox 11/13/22 07:43 36.4 C L 82 18 149/71 H 94 11/13/22 03:26 36.5 C 73 18 123/68 96 11/12/22 21:47 76 11/12/22 22:50 37.0 C 82 20 119/57 L 93 11/12/22 22:51 11/12/22 22:22 80 18 91 O2 Del Method 11/13/22 07:43 Room Air 11/13/22 03:26 Room Air 11/12/22 21:47 11/12/22 22:50 Room Air 11/12/22 22:51 Room Air 11/12/22 22:22 Room Air Laboratory Results 11/13/22 11/13/22 Range/Units 10:14 10:14 WBC 18.74 H (4.8-10.8) K/ul RBC 4.60 L (4.63-6.08) M/uL Hgb 14.3 (14.0-18.0) g/dl Hct 43.6 (40.1-51.0) % MCV 94.8 (80.0-100.0) fL MCH 31.1 (25.0-34.0) pg MCHC 32.8 (32.0-36.0) g/dL RDW Std Deviation 40.5 (36.4-46.3) fL RDW Coeff of Conner 11.7 (11.5-14.5) % Plt Count 290 (130-400) K/uL MPV 11.3 (9.4-12.4) fL Sodium 139 (136-145) mmol/L Potassium 4.1 (3.5-5.1) mmol/L Chloride 106 (98-107) mmol/L Carbon Dioxide 28 (21-32) mmol/L Anion Gap 5 (3-11) BUN 26 H (6-23) mg/dl Creatinine 0.75 (0.6-1.4) mg/dl Est Cr Clr Drug Dosing 77.1 ml/min Est GFR ( Amer) 102.6 ml/min Est GFR (Non-Af Amer) 88.5 ml/min BUN/Creatinine Ratio 34.7 H (10-20) Glucose 109 H (70-99(Fasting)) mg/dl Calcium 8.9 (8.5-10.1) mg/dl Phosphorus 3.3 (2.5-4.9) mg/dl Magnesium 2.2 (1.7-2.4) mg/dl Medications Administered Current Inpatient Medications Acetaminophen (Acetaminophen 325 Mg Tab) 650 mg PO Q4H PRN PRN Reason: Pain or Fever Stop: 12/11/22 02:19 Last Admin: 11/11/22 21:11 Dose: 650 mg Albuterol (Albuterol Hfa 8 Gm Inhaler) 1 puffs INH Q6H PRN; Protocol PRN Reason: SOB/WHEEZING Stop: 12/11/22 02:45 Atorvastatin Calcium (Atorvastatin 10 Mg Tab) 10 mg PO DAILY [facility] Stop: 12/11/22 08:59 Last Admin: 11/13/22 09:02 Dose: 10 mg Doxycycline Hyclate (Doxycycline Hyclate 100 Mg Cap) 100 mg PO BID THI Stop: 11/19/22 20:59 Last Admin: 11/13/22 09:02 Dose: 100 mg Enoxaparin Sodium (Enoxaparin Inj 40 Mg/0.4 Ml Syr) 40 mg SQ Q24H THI Stop: 12/11/22 05:59 Last Admin: 11/13/22 05:17 Dose: Not Given Finasteride (Finasteride 5 Mg Tab) 5 mg PO QAM [facility] Stop: 12/11/22 08:59 Last Admin: 11/13/22 09:02 Dose: 5 mg Fluticasone Propionate (Fluticasone Propionate Na Spr 16 Gm Btl) 2 sprays NA DAILY THI Stop: 12/11/22 08:59 Last Admin: 11/13/22 09:02 Dose: 2 sprays Guaifenesin (Guaifenesin 600 Mg Tabcr) 1,200 mg PO Q12 THI Stop: 12/12/22 20:59 Last Admin: 11/13/22 09:02 Dose: 1,200 mg Ceftriaxone Sodium 1,000 mg/ (Dextrose) 50 mls @ 100 mls/hr IV Q24H [facility]; Protocol Stop: 11/19/22 13:59 Last Infusion: 11/12/22 16:25 Dose: Infused Methylprednisolone 40 mg/ (Syringe) 0.64 mls @ 1.5 mls/min IV DAILY THI Stop: 12/13/22 08:59 Last Admin: 11/13/22 09:03 Dose: 1.5 mls/min Ipratropium Fay (Ipratropium Fay Hfa Inhaler) 1 puffs INH Q6H PRN; Protocol PRN Reason: SOB/WHEEZING Stop: 12/11/22 02:45 Ipratropium Fay (Ipratropium Fay Neb Soln 0.02% 2.5 Ml Vial) 0.5 mg INH QIDR PRN PRN Reason: Wheezing Stop: 12/11/22 06:59 Last Admin: 11/12/22 22:20 Dose: 0.5 mg Levalbuterol HCl (Levalbuterol Hcl 1.25 Mg/3 Ml Neb) 1.25 mg NEB Q2H PRN; Protocol PRN Reason: Shortness Of Breath Or Wheezing Stop: 12/11/22 02:19 Last Admin: 11/12/22 22:20 Dose: 1.25 mg Nitroglycerin (Nitroglycerin Sl 0.4 Mg/Tab Tab) 0.4 mg SL UD PRN PRN Reason: Chest Pain Stop: 12/11/22 02:19 Oseltamivir Phosphate (Oseltamivir Phosphate 75 Mg Cap) 75 mg PO BID THI; Protocol Stop: 11/13/22 23:00 Last Admin: 11/13/22 09:02 Dose: 75 mg Oxycodone HCl (Oxycodone Hcl Ir 5 Mg Tab (Immediate Release)) 15 mg PO DAILY PRN PRN Reason: pain Stop: 11/25/22 02:19 Tamsulosin HCl (Tamsulosin Hcl 0.4 Mg Cap) 0.4 mg PO DAILY THI Stop: 12/11/22 08:59 Last Admin: 11/13/22 09:02 Dose: 0.4 mg
[2022-11-13 10:50] LABS: Hematocrit (blood only) 43.6 % (40.1-51.0); Hemoglobin 14.3 g/dl (14.0-18.0); Mean Corpuscular Hemoglobin 31.1 pg (25.0-34.0); Mean Corpuscular Hgb Conc 32.8 g/dL (32.0-36.0); Mean Corpuscular Volume 94.8 fL (80.0-100.0); Mean Platelet Volume 11.3 fL (9.4-12.4); Platelet Count 290 K/uL (130-400); RDW Coefficient of Variation 11.7 % (11.5-14.5); RDW Standard Deviation 40.5 fL (36.4-46.3); White Blood Count 18.74 K/ul (4.8-10.8)
[2022-11-13] MEDS: LEVALBUTEROL HCL 1.25 MG/3 ML NEB NEB PRN (11:11)
[2022-11-13] MEDS: IPRATROPIUM BROMIDE NEB SOLN 0.02% 2.5 ML VIAL INH PRN (11:11)
[2022-11-13 11:14] LABS: BUN Creatinine Ratio 34.7 (10-20); Calcium 8.9 mg/dl (8.5-10.1); Creatinine Clr Calc Pharmacy 77.1 ml/min; Est GFR (African American) 102.6 ml/min; Est GFR (Non-African American) 88.5 ml/min; Magnesium 2.2 mg/dl (1.7-2.4); Phosphorus 3.3 mg/dl (2.5-4.9); Potassium 4.1 mmol/L (3.5-5.1)
[2022-11-13] MEDS: cefTRIAXone SODIUM 1,000 MG in DEXTROSE 5% AD-VAN 50 ML IV SCH (15:00)
--- NOTE | 2022-11-13 15:28 | Discharge Summary ---
Date of Service November 13, 2022 Admission HPI Per Admitting Provider A 77-year-old male with past medical history significant for hyperlipidemia, history of COPD, chronic pansinusitis, history of left anterior fascicular block, GERD, BPH, history of urethral stricture, osteoarthritis, chronic back pain, depression, who presents with shortness of breath. The patient was recently here with the flu. He still has one more day of Tamiflu to go, but he says walking short distance makes him very short of breath, has cough, having had developed again fever today. Denies any headache. No neck pain. Has chronic back pain. Denies any chest pain. No nausea, no vomiting, no abdominal pain. Normal bowel and bladder movements. Has some runny nose and sore throat. Somewhat hard of hearing. Resting comfortably and hemodynamically stable. Admission Exam Per Admitting Provider GENERAL: The patient is of moderate build, not in acute distress. VITAL SIGNS: Temperature 37.6, pulse 100, respiratory rate 20, blood pressure 149/69, oxygen 99%. HEENT: Pupils equal, round and reactive to light. Oral mucosa moist. NECK: No JVD, no neck masses. CARDIOVASCULAR: S1 and S2 heard. Regular rate and rhythm. No murmur, no gallop. RESPIRATORY SYSTEM: Normal AP diameter. No accessory muscle use. Bilateral rhonchi heard. No crackles. ABDOMEN: Soft, bowel sounds present, nontender, no distention. CENTRAL NERVOUS SYSTEM: Cranial nerves II-XII grossly intact, nonfocal. EXTREMITIES: No edema, no erythema. Principal Diagnosis COPD exacerbation Influenza A Discharge Exam GENERAL: The patient is of moderate build, not in acute distress. HEENT: Pupils equal, round and reactive to light. EOMI. Oral mucosa moist. NECK: No JVD, no neck masses. CARDIOVASCULAR: S1 and S2 heard. Regular rate and rhythm. No murmur, no gallop. RESPIRATORY: Normal AP diameter. No accessory muscle use.Minimal rhonchi, no wheezing. ABDOMEN: Soft, bowel sounds present, nontender, no distention. NEURO:Alert oriented, answer questions appropriately. Moves extremities. EXTREMITIES: No edema, no erythema. Discharge Data Allergies Allergy/AdvReac Type Severity Reaction Status Date / Time sulfamethoxazole Allergy Intermediate RASH Verified 11/11/22 00:45 trimethoprim Allergy Intermediate RASH Verified 11/11/22 00:45 doxycycline AdvReac Intermediate GI UPSET Verified 11/11/22 00:45 Consultations 11/11/22 01:26 ED Decision to Admit Stat Hospital Course (1) Influenza A: This is a 77-year-old male who presents with ongoing shortness of breath. 1. Shortness of breath. Influenza A positive. Chronic obstructive pulmonary disease exacerbation. Continue Tamiflu course Starting on azithromycin on admission. Will hold now given poss. NSVT. Nebs around the clock and p.r.n ordered, will decrease to prn given episode of NSVT. Closely monitor in the med tele. On droplet precaution. Patient responded to prednisone and azithromycin. We are holding azithromycin now, so will start ceftriaxone and Doxy for now. 11/12 - patient feeling somewhat better. Reports that his mucus is now thinner. -patient is breathing comfortably on room air, he is coughing less, and has much less mucus production. He is interested in going home. Will discharge on prednisone and doxycycline. Patient has PCP follow-up scheduled for Saturday. NSVT -Episode of 8 beats on 11/12, patient asymptomatic -Electrolytes, potassium and magnesium within normal limit -Continue to closely monitor - no further arrhythmia noted 2. Hyperlipidemia, on statin. 3. History of benign prostatic hyperplasia. Continue Flomax and finasteride. 4. Chronic back pain. Continue his home pain medications. Total Time Total Time Spent Total Time Spent (In Minutes): 40 Discharge Plan Discharge Items Patient Disposition: Home - Self-Care Reason For Visit: SHORTNESS OF BREATH Discharge Diagnosis: COPD exacerbation Influenza A Condition on Discharge: Fair Activity: Per Instructions section Non-emergency contact: Primary Care Provider Call non-emergency contact if: you have any medication questions and your symptoms worsen Follow-up/Referrals: Eddie Zuniga [Primary Care Provider] - Diet: Regular Addtl Attending Provider Instructions: Follow-up with your primary care doctor within 1 week. Continue taking prednisone and doxycycline as prescribed. If you are still smoking, recommend to quit smoking. Consider calling 1 [employer] free smoking cessation line. Pending Studies at Discharge: No Stand-Alone Forms: [employer], Smoking Cessation Medications and DC Order Prescriptions: New doxycycline hyclate 100 mg Capsule 100 mg PO BID 5 Days Qty: 10 0RF guaifenesin [Mucinex] 600 mg Tablet Extended Release 12hr 1,200 mg PO Q12 5 Days Qty: 20 0RF prednisone 20 mg tablet 40 mg PO DAILY 4 Days Qty: 8 0RF Continued fluticasone propionate [Allergy Relief (fluticasone)] 50 mcg/actuation spray,suspension 2 sprays INTNAS DAILY Qty: 16 5RF Rx Instructions: administer into each nostril albuterol sulfate 2.5 mg /3 mL (0.083 %) solution for nebulization 2.5 mg INH Q6H PRN (Reason: shortness of breath or wheezing) Qty: 360 1RF oxycodone 15 mg tablet 15 mg PO DAILY PRN (Reason: pain) Qty: 30 0RF atorvastatin 10 mg tablet 10 mg PO DAILY tamsulosin 0.4 mg capsule 0.4 mg PO DAILY ergocalciferol (vitamin D2) 1,250 mcg (50,000 unit) capsule 50,000 unit PO .WEEK BUT IS HOLDING Rx Instructions: TAKES ON SUNDAYS. finasteride 5 mg tablet 5 mg PO QAM oseltamivir [Tamiflu] 75 mg Capsule 75 mg PO BID Qty: 10 0RF Rx Instructions: LAST DAY IS TOMARROW Combivent Respimat 20-100 mcg/actuation mist 1 puff inhalation Q6H PRN (Reason: sob) Qty: 4 0RF codeine-guaifenesin 10-100 mg/5 mL liquid 10 ml PO Q6H PRN (Reason: cough) Qty: 120 0RF Rx Instructions: Do not use with other narcotics, will make you drowsy, do not drive after taking Discharge Orders: Discharge Order (Routine); Ordered 11/13/22 Ordered By: Tim Schaefer Admission Data Admit Date/Time: 11/11/22 00:59 Attending Provider: Tim Schaefer Admit Provider: Patric Black Primary Care Provider: Eddie Zuniga Other Providers: Patric Black
== END 2022-11-13 16:57 | disposition home or self-care (01) | DRG 194 ==
LOC: ED 22:07 → SUATTDRO 11-11 00:59 → 2W 11-11 00:59